=== PATIENT | female | born 1985 | race Caucasian/White ===

== ENCOUNTER 2017-04-21 14:18 | Emergency (ER) | payer OTHER ==
[2017-04-21 14:25] VITALS: BMI 30.9
[2017-04-21] MEDS ORDERED: SODIUM CHLORIDE 1,000 ML IV STA (15:54)
[2017-04-21] MEDS ORDERED: morphine CARPU-JECT 4 MG/1 ML DISP.SYRIN IVPUSH ONE (15:54)
[2017-04-21] MEDS ORDERED: ONDANSETRON 4 MG/2 ML VIAL IVPB ONE (15:54)
[2017-04-21] MEDS ORDERED: morphine CARPU-JECT 10 MG/1 ML DISP.SYRIN ONE (16:10)
[2017-04-21] MEDS ORDERED: ONDANSETRON 4 MG/2 ML VIAL ONE (16:11)
[2017-04-21 16:41] LABS: BASOPHIL 0.5 % (0-2.0); EOSINOPHIL 0.9 % (0-4.5); MCH 25.6 pg (25.7-33.7); MCHC 32.3 g/dl (32.0-36.0); MEAN CELL VOLUME 79.4 fl (80-96); MEAN PLT VOLUME 9.8 fl (7.5-11.1); NEUTROPHILS 55.3 % (42.8-82.8); PLATELET COUNT 278 K/MM3 (134-434); RDW 16.4 % (11.6-15.6); WHITE BLOOD COUNT 7.1 K/mm3 (4.0-10.0)
[2017-04-21 16:56] LABS: PH,URINE 5.5 (5.0-8.0); URINE APPEARANCE CLEAR; URINE BILIRUBIN 2+ (NEGATIVE); URINE BLOOD 3+ (NEGATIVE); URINE COLOR DK. ORANGE; URINE GLUCOSE (UA) TRACE (NEGATIVE); URINE KETONE TRACE (NEGATIVE); URINE NITRITE NEGATIVE (NEGATIVE)
[2017-04-21 17:01] LABS: URINE PROTEIN 1+ (NEGATIVE)
[2017-04-21 17:03] VITALS: BP 116/78; PULSE 78; TEMP 98.5
--- NOTE | 2017-04-21 17:03 | PDOC ---
History of Present Illness - History of Present Illness Initial Comments: 04/21/17 17:21 The patient is a 31 year old female who is approximately 1 month s/p gastric sleeve surgery in [place] who presents to the ED complaining of several days of diffuse lower abdominal pain. No nausea, vomiting, or constipation. She also reports some vaginal bleeding consistent with her normal menstrual period. No fever or chills. No chest pain or palpitations. <Jhoana Mckeon - Last Filed: 04/21/17 18:00> <Jacinta Chandler - Last Filed: 04/21/17 21:01> - General Chief Complaint: Vaginal Bleeding Stated Complaint: VAGINAL BLEEDING/pelvic pain Time Seen by Provider: 04/21/17 17:03 Past History <Johana Mckeon - Last Filed: 04/21/17 18:00> - Past Medical History Other medical history: fibroids - Surgical History Abdominal Surgery: Yes (gastric sleeve) - Immunization History Immunization Up to Date: Yes - Suicide/Smoking/Psychosocial Hx Smoking Status: No Smoking History: Never smoked Have you smoked in the past 12 months: No Number of Cigarettes Smoked Daily: 0 Information on smoking cessation initiated: No Hx Alcohol Use: No Drug/Substance Use Hx: No Substance Use Type: None <Jacinta Chandler - Last Filed: 04/21/17 21:01> - Past Medical History Allergies/Adverse Reactions: Allergies Allergy/AdvReac Type Severity Reaction Status Date / Time No Known Allergies Allergy Verified 04/21/17 14:21 Home Medications: Ambulatory Orders No Home Medications 0 dose .ROUTE UTDICT 12/15/12 Review of Systems - Review of Systems Able to Perform ROS?: Yes Comments:: 04/21/17 18:05 GENERAL/CONSTITUTIONAL: No: fever, chills, weakness, loss of appetite. HEAD, EYES, EARS, NOSE AND THROAT: No: change in vision, ear pain, discharge, sore throat, throat swelling. CARDIOVASCULAR: No: chest pain, lightheadedness, palpitations, syncope RESPIRATORY: No: cough, shortness of breath, wheezing, hemoptysis, stridor. GASTROINTESTINAL: Present: diffuse lower abdominal pain. No: nausea, vomiting, abdominal cramping, diarrhea, rectal bleeding, constipation. GENITOURINARY: Present: vaginal bleeding (normal) No: dysuria, hematuria, frequency, urgency, flank pain. MUSCULOSKELETAL: No: back pain, neck pain, joint pain, muscle swelling or pain SKIN AND BREASTS: No: lesions, pallor, rash or easy bruising. NEUROLOGIC: No: headache, vertigo, paresthesias, weakness ENDOCRINE: No: unexplained weight gain or loss HEMATOLOGIC/LYMPHATIC: No: anemia, easy bleeding, swelling nodes <Johana Mckeon - Last Filed: 04/21/17 18:00> *Physical Exam - Vital Signs Last Vital Signs Temp Pulse Resp BP Pulse Ox 98.5 F 78 16 116/78 99 04/21/17 15:30 04/21/17 15:30 04/21/17 15:30 04/21/17 15:30 04/21/17 15:30 - Physical Exam Comments: 04/21/17 18:08 GENERAL: The patient is in no acute distress. HEAD: Normal with no signs of trauma. EYES: PERRLA, EOMI, sclera anicteric, conjunctiva clear. ENT: Ears normal, nares patent, oropharynx clear without exudates. Moist mucous membranes. NECK: Normal range of motion, supple without lymphadenopathy, JVD, or masses. LUNGS: Breath sounds equal, clear to auscultation bilaterally. No wheezes, and no crackles. HEART:Regular rate and rhythm, normal S1 and S2 without murmur, rub or gallop. ABDOMEN: +Diffuse lower abdominal tenderness to palpation, worse on the right side. Soft, normoactive bowel sounds. No guarding, no rebound. EXTREMITIES: Normal range of motion, no edema. No clubbing or cyanosis. No erythema, or tenderness. NEUROLOGICAL: Cranial nerves II through XII grossly intact. Normal speech. No focal neurological deficits. MUSCULOSKELETAL: Back non-tender to palpation, no CVA tenderness SKIN: Warm, Dry, normal turgor, no rashes or lesions noted. <Johana Mckeon - Last Filed: 04/21/17 18:00> - Vital Signs Last Vital Signs Temp Pulse Resp BP Pulse Ox 98.5 F 78 16 116/78 99 04/21/17 15:30 04/21/17 15:30 04/21/17 15:30 04/21/17 15:30 04/21/17 15:30 <Jacinta Chandler - Last Filed: 04/21/17 21:01> ED Treatment Course - LABORATORY CBC & Chemistry Diagram: 04/21/17 16:30 04/21/17 16:30 - ADDITIONAL ORDERS Additional order review: Laboratory Results 04/21/17 16:30 Serum , Qual Negative Urine Color Dk. orange Urine Appearance Clear Urine pH 5.5 Urine Protein 1+ H Urine Glucose (UA) Trace H Urine Ketones Trace H Urine Blood 3+ H Urine Nitrite Negative Urine Bilirubin 2+ H Urine Urobilinogen 1.0 04/21/17 16:30 RBC 4.85 MCV 79.4 L MCHC 32.3 RDW 16.4 H MPV 9.8 D Neutrophils % 55.3 D Lymphocytes % 34.2 D Monocytes % 9.1 Eosinophils % 0.9 D Basophils % 0.5 - Medications Given in the ED: ED Medications Discontinued Medications Generic Name Dose Route Start Last Admin Trade Name Freq PRN Reason Stop Dose Admin Sodium Chloride 1,000 mls @ 1,000 mls/hr 04/21/17 15:54 04/21/17 16:39 Normal Saline - IV 04/21/17 16:53 1,000 mls/hr ASDIR STA Administration Morphine Sulfate 4 mg 04/21/17 15:54 04/21/17 16:39 Morphine Injection - IVPUSH 04/21/17 15:55 4 mg ONCE ONE Administration Ondansetron HCl 4 mg 04/21/17 15:54 04/21/17 16:15 Zofran Injection IVPB 04/21/17 15:55 4 mg ONCE ONE Administration <Johana Mckeon - Last Filed: 04/21/17 18:00> - LABORATORY CBC & Chemistry Diagram: 04/21/17 16:30 04/21/17 16:30 - ADDITIONAL ORDERS Additional order review: Laboratory Results 04/21/17 16:30 Serum , Qual Negative Urine Color Dk. orange Urine Appearance Clear Urine pH 5.5 Urine Protein 1+ H Urine Glucose (UA) Trace H Urine Ketones Trace H Urine Blood 3+ H Urine Nitrite Negative Urine Bilirubin 2+ H Urine Urobilinogen 1.0 04/21/17 16:30 RBC 4.85 MCV 79.4 L MCHC 32.3 RDW 16.4 H MPV 9.8 D Neutrophils % 55.3 D Lymphocytes % 34.2 D Monocytes % 9.1 Eosinophils % 0.9 D Basophils % 0.5 - Medications Given in the ED: ED Medications Discontinued Medications Generic Name Dose Route Start Last Admin Trade Name Azra PRN Reason Stop Dose Admin Sodium Chloride 1,000 mls @ 1,000 mls/hr 04/21/17 15:54 04/21/17 16:39 Normal Saline - IV 04/21/17 16:53 1,000 mls/hr ASDIR STA Administration Morphine Sulfate 4 mg 04/21/17 15:54 04/21/17 16:39 Morphine Injection - IVPUSH 04/21/17 15:55 4 mg ONCE ONE Administration Ondansetron HCl 4 mg 04/21/17 15:54 04/21/17 16:15 Zofran Injection IVPB 04/21/17 15:55 4 mg ONCE ONE Administration <Jacinta Chandler - Last Filed: 04/21/17 21:01> Medical Decision Making - Medical Decision Making 04/21/17 18:10 31-year-old female presents with persistent nausea and vomiting since this morning. History of present illness significant for a gastric sleeve that was done in [place] one month ago. On exam, left and right quadrants are tender to deep palpation, but there is no guarding. Negative Plan is not clear. The patient is taking any anticoagulation following her surgery and there is concern for portal vein thrombosis 04/21/17 21:00 Patient does not have any abdominal pain now. Her pain is all suprapubic. CAT scan does show a 3.7 cm left ovarian cyst, large fibroids. There is no evidence on CAT scan of any acute intra-abdominal process <Jacinta Chandler - Last Filed: 04/21/17 21:01> *DC/Admit/Observation/Transfer - Attestations Scribe Attestion: 04/21/17 18:09 Documentation prepared by Johana Mckeon, acting as medical education coordinator for Jacinta Chandler MD. <Johana Mckeon - Last Filed: 04/21/17 18:00> <Jacinta Chandler - Last Filed: 04/21/17 21:01> Diagnosis at time of Disposition: Vaginal bleeding Fibroid uterus Qualifiers: Uterine leiomyoma location: unspecified location Qualified Code(s): D25.9 - Leiomyoma of uterus, unspecified Ovarian cyst Qualifiers: Laterality: left Qualified Code(s): N83.202 - Unspecified ovarian cyst, left side - Discharge Dispostion Disposition: HOME Condition at time of disposition: Stable - Patient Instructions Printed Discharge Instructions: DI for Ovarian Cyst Additional Instructions: please return if you have any worsening symptoms follow up with your clean rice broker
[2017-04-21 18:17] LABS: ALBUMIN 3.6 g/dl (3.4-5.0); ALK PHOS 80 U/L (45-117); ANION GAP 9 (8-16); BILIRUBIN,TOTAL 0.6 mg/dL (0.2-1.0); CALCIUM 8.8 mg/dL (8.5-10.1); CO2 24 mmol/L (21-32); CREATININE 0.7 mg/dL (0.55-1.02); GLUCOSE,RANDOM 79 mg/dL (74-106); SGOT/AST 24 U/L (15-37); SGPT/ALT 44 U/L (12-78); TOT PROT 7.5 g/dl (6.4-8.2)
[2017-04-21 18:51] LABS: URINE BACTERIA RARE /hpf (NONE SEEN); URINE MUCUS MANY; URINE RBC 2691 /hpf (0-3); URINE WBC 4 /hpf (3-5)
[2017-04-21] MEDS ORDERED: KETOROLAC TROMETHAMINE 60 MG/2 ML VIAL IM ONE (21:01)
[2017-04-21] MEDS ORDERED: KETOROLAC TROMETHAMINE 60 MG/2 ML VIAL ONE (21:02)
[2017-04-21 22:03] LABS: URINE LEUK ESTERASE Negative (NEGATIVE)
== END 2017-04-21 20:50 | disposition home or self-care (01) ==
LOC: JER 14:18
PROC: 3E0333Z Introduction of Anti-inflammatory into Peripheral Vein, Percutaneous Approach (ICD-10-PCS; principal; 2017-04-21)
PROC: 3E033NZ Introduction of Analgesics, Hypnotics, Sedatives into Peripheral Vein, Percutaneous Approach (ICD-10-PCS; 2017-04-21)
PROC: 3E033GC Introduction of Other Therapeutic Substance into Peripheral Vein, Percutaneous Approach (ICD-10-PCS; 2017-04-21)
PROC: 3E0337Z Introduction of Electrolytic and Water Balance Substance into Peripheral Vein, Percutaneous Approach (ICD-10-PCS; 2017-04-21)
DX: N93.9 Abnormal uterine and vaginal bleeding, unspecified (principal); D25.9 Leiomyoma of uterus, unspecified; N83.202 Unspecified ovarian cyst, left side; Z98.84 Bariatric surgery status
CPT/HCPCS: 36415; 74177-TC; 80053; 81003; 81015; 84703; 85025; 87086; 99281-25

== ENCOUNTER 2017-10-29 21:54 | Emergency (ER) | payer OTHER ==
[2017-10-29 22:04] VITALS: BP 130/81; PULSE 92; TEMP 98.1; BMI 26.6
--- NOTE | 2017-10-29 22:08 | PDOC ---
History of Present Illness - General Chief Complaint: Pain, Acute Stated Complaint: ABD PAIN Time Seen by Provider: 10/29/17 22:06 History Source: Patient - History of Present Illness Initial Comments: 10/30/17 00:28 32-year-old female with history of left ectopic status post surgery 6 days ago complaining of bilateral pelvic pain for the last 3 days. Denies fevers /chills, nausea vomiting diarrhea, abdominal pain, urinary symptoms. Surgical sites intact and dry. Patient reports that she had a positive bowel movement that was soft in nature. Patient reported to the ER for pain uncontrolled with ibuprofen. LMP July 2017 Past History - Past Medical History Allergies/Adverse Reactions: Allergies Allergy/AdvReac Type Severity Reaction Status Date / Time No Known Allergies Allergy Verified 10/29/17 22:03 Home Medications: Ambulatory Orders Ibuprofen 800 mg PO ONCE 10/29/17 Acetaminophen W/ Codeine #3 [Tylenol # 3 -] 1 tab PO Q6H PRN #10 tablet MDD 4 Asthma: Yes COPD: No DVT: No Dementia: No - Surgical History Abdominal Surgery: Yes (gastric sleeve) - Reproductive History (#): 2 Para: 0 Cervical CA: No Dysfunctional Uterine Bleeding: No Ectopic : No Endometrial CA: No Polycystic Ovaries: No Therapeutic (s) & number: No Tubal Ligation: No Spontaneous : 0 - Immunization History Immunization Up to Date: Yes - Suicide/Smoking/Psychosocial Hx Smoking Status: No Smoking History: Never smoked Have you smoked in the past 12 months: No Number of Cigarettes Smoked Daily: 0 Hx Alcohol Use: No Drug/Substance Use Hx: No Substance Use Type: None Review of Systems - Review of Systems Able to Perform ROS?: Yes Is the patient limited Turkmen proficient: No ABD/GI: No: Symptoms Reported, See HPI, Abdominal Distended, Abd. Pain w/ defecation, Blood Streaked Bowels, Constipated, Diarrhea, Difficulty Swallowing , Nausea, Poor Appetite, Poor Fluid Intake, Rectal Bleeding, Vomiting, Indigestion, Abdominal cramping, Tarry Stools, Other : Yes: Other (pelvic pain) *Physical Exam - Vital Signs Last Vital Signs Temp Pulse Resp BP Pulse Ox 98.1 F 92 H 22 130/81 99 10/29/17 22:01 10/29/17 22:01 10/29/17 22:01 10/29/17 22:01 10/29/17 22:01 - Physical Exam General Appearance: Yes: Appropriately Dressed Cardiovascular: positive: Regular Rhythm, Regular Rate Gastrointestinal/Abdominal: positive: Normal Bowel Sounds, Tender (lower abdominal tenderness b/l), Soft Musculoskeletal: positive: Normal Inspection Extremity: positive: Normal Capillary Refill, Normal Inspection, Normal Range of Motion Integumentary: positive: Normal Color, Dry, Warm Neurologic: positive: Fully Oriented, Alert, Normal Mood/Affect ED Treatment Course - LABORATORY CBC & Chemistry Diagram: 10/29/17 22:36 10/29/17 22:36 Progress Note - Progress Note Progress Note: Pelvic pain/ abdominal pain P: CBC CMP ua CTAP: fibroid uterus US: wnl Pain control *DC/Admit/Observation/Transfer Diagnosis at time of Disposition: Pelvic pain Fibroid uterus Qualifiers: Uterine leiomyoma location: unspecified location Qualified Code(s): D25.9 - Leiomyoma of uterus, unspecified - Discharge Dispostion Disposition: HOME Condition at time of disposition: Improved - Prescriptions Prescriptions: Acetaminophen W/ Codeine #3 [Tylenol # 3 -] 1 tab PO Q6H PRN #10 tablet MDD 4 PRN Reason: Moderate Pain - Referrals Referrals: Marisa Canales MD [Primary Care Provider] - - Patient Instructions Printed Discharge Instructions: DI for Pelvic Pain Additional Instructions: follow up with your email marketer as soon as possible take tylenol # 3 for severe pain take ibuprofen every 6 hours. - Post Discharge Activity Forms/Work/School Notes: Back to Work
[2017-10-29] MEDS ORDERED: morphine SULFATE 4 MG/ML VIAL IVPUSH ONE (22:26)
[2017-10-29] MEDS ORDERED: MORPHINE SULFATE 10 MG/1 ML *VIAL ONE (22:34)
[2017-10-29 22:52] LABS: BASO % 0.3 % (0-2.0); EOS % 1.5 % (0-4.5); HEMATOCRIT 32.1 % (32.4-45.2); HEMOGLOBIN 10.5 GM/dL (10.7-15.3); LYMPH % 27.1 % (8-40); MCH 23.8 pg (25.7-33.7); MCHC 32.8 g/dl (32.0-36.0); MEAN CELL VOLUME 72.7 fl (80-96); MONO % 5.6 % (3.8-10.2); NEUT % 65.5 % (42.8-82.8); PLATELET COUNT 373 K/MM3 (134-434); RBC 4.41 M/mm3 (3.60-5.2); RDW 21.3 % (11.6-15.6)
[2017-10-29 23:17] LABS: ALBUMIN 3.3 g/dl (3.4-5.0); ANION GAP 7 (8-16); BILIRUBIN,TOTAL 0.3 mg/dL (0.2-1.0); BLOOD UREA NITROGEN 7 mg/dL (7-18); CALCIUM 8.9 mg/dL (8.5-10.1); CHLORIDE 107 mmol/L (98-107); CO2 28 mmol/L (21-32); CREATININE 0.6 mg/dL (0.55-1.02); GLUCOSE,RANDOM 81 mg/dL (74-106); POTASSIUM 4.3 mmol/L (3.5-5.1); SGOT/AST 15 U/L (15-37); SGPT/ALT 20 U/L (12-78); SODIUM 142 mmol/L (136-145); TOT PROT 7.4 g/dl (6.4-8.2)
[2017-10-29 23:18] LABS: ALK PHOS 80 U/L (45-117)
[2017-10-29] MEDS ORDERED: ACETAMINOPHEN 1000 MG/100 ML VIAL (NON FORMULARY) IVPB ONE (23:26)
[2017-10-29] MEDS ORDERED: ACETAMINOPHEN INJECTION 100 ML IVPB ONE (23:29)
[2017-10-30] MEDS ORDERED: morphine CARPU-JECT 4 MG/1 ML DISP.SYRIN IVPUSH ONE (00:47)
[2017-10-30] MEDS ORDERED: MORPHINE SULFATE 10 MG/1 ML *VIAL ONE (00:54)
[2017-10-30] MEDS ORDERED: KETOROLAC TROMETHAMINE 30 MG/1 ML VIAL IVPUSH ONE (01:08)
[2017-10-30] MEDS ORDERED: KETOROLAC TROMETHAMINE 30 MG/1 ML VIAL ONE (01:40)
== END 2017-10-30 01:53 | disposition home or self-care (01) ==
LOC: JER 21:54
DX: D25.9 Leiomyoma of uterus, unspecified (principal)
CPT/HCPCS: 36415; 74177-TC; 76856-TC; 80053; 84703; 85025; 86850; 86900; 86901; 99283-25; J0131

== ENCOUNTER 2018-08-29 21:12 | Observation (INO) | payer OTHER ==
[2018-08-29 21:20] VITALS: BMI 24.9
[2018-08-29] MEDS ORDERED: ACETAMINOPHEN 1000 MG/100 ML VIAL (NON FORMULARY) IVPB ONE (22:21)
[2018-08-29] MEDS ORDERED: SODIUM CHLORIDE 1,000 ML IV STA (22:21)
--- NOTE | 2018-08-29 22:23 | PDOC ---
Attending Attestation - HPI HPI: CC: Abdominal cramping The patient is a 32 year old female 15 weeks (A1), with a significant PMH of ectopic , fibroids, and asthma, who presents to the emergency department today complaining of abdominal cramping for 2 days. Patient notes that the pain began last night, and is described as crampy and pressure-like in nature. She denies vaginal bleeding, but endorses brown-watery discharge. Patient notes associated chills, and complains of nausea which has been present secondary to her . She notes her last bowel movement was yesterday, which was normal without blood. Patient reports that her first was ectopic in September 2017, which required surgical care at [facility]. She denies any complications during that . Intrauterine was confirmed, and her last ultrasound was 18 days ago. The patient denies chest pain, shortness of breath, headache and dizziness. Denies fever, vomit, diarrhea and constipation. Denies dysuria, frequency, urgency and hematuria. Allergies: NKA Past surgical history: Gastric sleeve, laparoscopic ectopic surgery Social history: No reported OBGYN: Dr. Marisa Bruno 08/30/18 01:06 - Physicial Exam PE: Vitals: Triage Vital signs reviewed General Appearance: no acute distress, well nourished well developed, Head: Atraumatic, normocephalic Cardiac: Regular rate and rhythm, no murmurs, no rubs, no gallops, Lungs: Clear to auscultation bilateral, good air movement bilaterally, Abdomen: +Diffuse lower abdominal tenderness to palpation. Soft, nondistended, normal bowel sounds, Extremities: Full range of motion to all extremities, no cyanosis, clubbing, or edema Skin: Warm and dry, no rashes or lesions, no petechiae Neuro: AOX3; Cranial Nerves 2-12 grossly c intact, Strength intact to all extremities, Sensation intact to all extremities, Psych: normal mood, normal affect 08/30/18 01:06 - Medical Decision Making 32 year old female 15 weeks with history of ectopic , fibroids and asthma presents to the ED with abdominal cramping for 2 days. Plan: Obtain labs, obstetric ultrasound, and medications to help alleviate pain. EXAM: Ultrasound obstetric, twin IMPRESSION: Cervical funneling, with the cervix only mm in length. Live twin with estimated age of 14 weeks 4 days/5 days. 7.2 cm right fundal fibroid. Nonvisualization of the right ovary. Reported by: Cristofer Thapa MD 08/30/2018 00:44 1:02 am- Spoke with Dr. Gray's call service, awaiting call back 1:07 am- Spoke with Dr. Gray concerning patient's care, is in agreement with plan Documentation prepared by CONY Dunne, acting as medical operations supervisor for James Tineo MD. 08/30/18 01:07 <Gabby Flores - Last Filed: 08/30/18 01:06> - Resident Resident Name: Katia Reyes - ED Attending Attestation I have performed the following: I have examined & evaluated the patient, The case was reviewed & discussed with the resident, I agree w/resident's findings & plan, Exceptions are as noted - Medical Decision Making 08/30/18 01:03 15 weeks by dates ultrasound with open os Upon return from ultrasound patient with progressively worsening abdominal cramping now actively miscarrying Passage of one fetus with small amount of blood will perform speculum exam to see if there if visually can see second. Dr. Reyes SALES PROMOTER paged 08/30/18 01:29 Reevaluation 1:30 AM second fetus delivered placenta delivered. No significant bleeding. POC sent to pathology We'll observe overnight on 3 W. to monitor for bleeding Dr. Reyes will consult on patient to ensure no Pitocin needed I expressed my condolences to the patient and family. <James Tineo - Last Filed: 08/30/18 02:13>
[2018-08-29] MEDS ORDERED: ACETAMINOPHEN INJECTION 100 ML IVPB ONE (22:24)
[2018-08-29] MEDS ORDERED: METOCLOPRAMIDE HCL INJECTION 10 MG/2 ML VIAL IVPUSH ONE (22:26)
--- NOTE | 2018-08-29 22:37 | PDOC ---
History of Present Illness - General Chief Complaint: Pain Stated Complaint: ABDOMINAL PAIN, 3 MONTHS Time Seen by Provider: 08/29/18 21:23 - History of Present Illness Initial Comments: 32yo F A1 currently 15 weeks with twins presenting with abdominal cramping. Patient states the pain started last night and is described as 'crampy ' and 'pressure.' She denies vaginal bleeding but has had some brownish watery discharge. Patient first was an ectopic that was surgically treated in September 2017 at [facility]. Her seal delivery vehicle officer provider is Marisa Bruno. No complications with this . IUP has been confirmed and her last ultrasound was on 08/12/18. Denies fever, but endorses chills. Last bowel movement was yesterday and was a normal formed brown stool without blood. Patient reports nausea that she has had throughout the . No dysuria, hematuria, or urgency. Denies chest pain or shortness of breath. Past History - Past Medical History Allergies/Adverse Reactions: Allergies Allergy/AdvReac Type Severity Reaction Status Date / Time No Known Allergies Allergy Verified 08/29/18 21:20 Home Medications: Ambulatory Orders Ibuprofen 800 mg PO ONCE 10/29/17 Acetaminophen W/ Codeine #3 [Tylenol # 3 -] 1 tab PO Q6H PRN #10 tablet MDD 4 Ferrous Sulfate 325 mg PO BID #90 tablet 08/30/18 Ibuprofen [Motrin -] 600 mg PO TID #21 tablet 08/30/18 Asthma: Yes COPD: No DVT: No Dementia: No - Surgical History Abdominal Surgery: Yes (gastric sleeve) - Reproductive History (#): 2 Para: 0 Cervical CA: No Dysfunctional Uterine Bleeding: No Ectopic : No Endometrial CA: No Polycystic Ovaries: No Therapeutic (s) & number: No Tubal Ligation: No Spontaneous : 0 - Immunization History Immunization Up to Date: Yes - Suicide/Smoking/Psychosocial Hx Smoking Status: No Smoking History: Never smoked Have you smoked in the past 12 months: No Number of Cigarettes Smoked Daily: 0 Information on smoking cessation initiated: No Hx Alcohol Use: No Drug/Substance Use Hx: No Substance Use Type: None Review of Systems - Review of Systems Comments:: Constitutional: no fever, +chills HEENT: no throat pain, no dysphagia Cardiovascular: no chest pain, no palpitations Respiratory: no cough, no shortness of breath Gastrointestinal: +abdominal pain, +nausea Genitourinary: no dysuria, +discharge Musculoskeletal: no myalgia, no arthralgia Skin: no rash, no itching Neurologic: no headache, no dizziness *Physical Exam - Vital Signs Last Vital Signs Temp Pulse Resp BP Pulse Ox 98.0 F 92 H 16 98/59 L 100 08/29/18 21:18 08/29/18 21:18 08/29/18 21:18 08/29/18 21:18 08/29/18 21:18 - Physical Exam Comments: General: Awake, alert, and fully oriented; crying out intermittently in pain Head: No signs of trauma Eyes: EOMI, sclera anicteric ENT: Moist mucus membranes Neck: Normal ROM, supple Lungs: Lungs clear, Normal breath sounds Cardio: Regular rhythm, S1 and S2 present Abdomen: Gravid abdomen. Tenderness to palpation of suprapubic region. No guarding, no rebound, no masses Extremities: Normal range of motion, Distal pulses present SKIN: Warm, Dry, normal turgor Neurologic: Cranial nerves II through XII grossly intact. Normal speech Pelvic: External genitalia without erythema, exudate or discharge. Vaginal vault is with brown discharge and some blood. Cervix is of normal color without lesion. Uterus is noted to be of appropriate size for gestational age. Moderate Sedation - Procedure Monitoring Vital Signs: Procedure Monitoring Vital Signs Temperature 98.0 F 08/29/18 21:18 Pulse Rate 92 H 08/29/18 21:18 Respiratory Rate 16 08/29/18 21:18 Blood Pressure 98/59 L 08/29/18 21:18 O2 Sat by Pulse Oximetry (%) 100 08/29/18 21:18 ED Treatment Course - LABORATORY CBC & Chemistry Diagram: 08/30/18 15:30 08/29/18 22:38 Medical Decision Making - Medical Decision Making 32yo F A1 currently 15 weeks with twins presenting with abdominal cramping. DDX including but not limited to spontaneous , ectopic , UTI, nephrolithiasis, appendicitis Labs, ultrasound Fluids, Ofirmev, Reglan 08/29/18 22:43 UA with evidence of UTI with 3+LE and 262 WBC's, keflex ordered Awaiting official ultrasound report Patient still complaining of significant pain. Another 4mg morphine ordered 08/30/18 00:37 TVUS: IMPRESSION: Cervical funneling, with the cervix only 6 mm in length Live twin with estimated age of 14 weeks 4 days/5 days. 7.2 cm right fundal fibroid. Nonvisualization of the right ovary Patient miscarried while in the ED. Both fetuses were expelled with placental tissue. Patient in distress. Ativan given. Specimen was collected for pathology. Dr. Tineo spoke with Dr. Gray who accepted patient for observation. 08/30/18 01:53 *DC/Admit/Observation/Transfer Diagnosis at time of Disposition: Spontaneous - Discharge Dispostion Condition at time of disposition: Guarded - Prescriptions - Referrals - Patient Instructions - Post Discharge Activity
[2018-08-29] MEDS ORDERED: morphine CARPU-JECT 4 MG/1 ML DISP.SYRIN IVPUSH ONE (22:48)
[2018-08-29] MEDS ORDERED: morphine SULFATE 4 MG/ML VIAL ONE (22:49)
[2018-08-29 22:50] LABS: BASO % 0.3 % (0-2.0); EOS % 0.2 % (0-4.5); HEMATOCRIT 31.3 % (32.4-45.2); HEMOGLOBIN 10.3 GM/dL (10.7-15.3); LYMPH % 15.7 % (8-40); MCH 24.4 pg (25.7-33.7); MEAN PLT VOLUME 8.9 fl (7.5-11.1); NEUT % 77.8 % (42.8-82.8); PLATELET COUNT 282 K/MM3 (134-434); RBC 4.23 M/mm3 (3.60-5.2); RDW 24.1 % (11.6-15.6); URINE APPEARANCE CLOUDY; URINE BILIRUBIN NEGATIVE (<2.0 mg/dL); URINE COLOR DKYELLOW; URINE GLUCOSE (UA) NEGATIVE (NEGATIVE); URINE KETONE NEGATIVE (NEGATIVE); URINE LEUK ESTERASE 3+ (NEGATIVE); URINE NITRITE NEGATIVE (NEGATIVE); URINE PROTEIN 1+ (NEGATIVE); URINE UROBILINOGEN NEGATIVE mg/dL (0.2-1.0); WHITE BLOOD COUNT 15.3 K/mm3 (4.0-10.0)
[2018-08-29 23:01] LABS: EPI CELLS FEW /HPF (FEW); URINE BACTERIA RARE /hpf (NONE SEEN); URINE MUCUS MODERATE; YEAST RARE
[2018-08-29 23:29] LABS: ANISOCYTOSIS 3+; MACROCYTOSIS 1+
[2018-08-29 23:30] LABS: PLATELET ESTIMATE ADEQUATE
[2018-08-29] MEDS ORDERED: CEPHALEXIN MONOHYDRATE 500 MG CAPSULE (UD) PO ONE (23:58)
[2018-08-30] MEDS ORDERED: morphine CARPU-JECT 4 MG/1 ML DISP.SYRIN IVPUSH ONE (00:29)
[2018-08-30] MEDS ORDERED: morphine SULFATE 4 MG/ML VIAL ONE (00:36)
[2018-08-30] MEDS ORDERED: LORazepam 2 MG/ML SDV VIAL ONE (00:50)
[2018-08-30 01:34] LABS: ALK PHOS 93 U/L (45-117); ANION GAP 9 MMOL/L (8-16); BILIRUBIN,TOTAL 0.2 mg/dL (0.2-1); BLOOD UREA NITROGEN 9 mg/dL (7-18); CALCIUM 8.9 mg/dL (8.5-10.1); CHLORIDE 105 mmol/L (98-107); CO2 24 mmol/L (21-32); CREATININE 0.6 mg/dL (0.55-1.3); GLUCOSE,RANDOM 67 mg/dL (74-106); POTASSIUM 4.3 mmol/L (3.5-5.1); SGOT/AST 20 U/L (15-37); SGPT/ALT 31 U/L (13-61); SODIUM 138 mmol/L (136-145); TOT PROT 6.9 g/dl (6.4-8.2)
[2018-08-30] MEDS ORDERED: PROMETHAZINE HCL 25 MG/1 ML VIAL ONE (04:00)
[2018-08-30] MEDS ORDERED: BUTORPHANOL TARTRATE 1 MG/ML VIAL ONE ×2 (04:00)
[2018-08-30] MEDS ORDERED: METHYLERGONOVINE MALEATE 0.2 MG/1 ML AMP IM PRN ×2 (04:13→08:07)
[2018-08-30] MEDS ORDERED: BUTORPHANOL TARTRATE 1 MG/ML VIAL IVPB PRN (04:31)
[2018-08-30] MEDS ORDERED: PROMETHAZINE HCL 25 MG/1 ML VIAL IVPB PRN (04:32)
[2018-08-30] MEDS ORDERED: OXYTOCIN 20 UNITS in 0.9% NS 20 UNIT/1,000 ML INFUS.BAG IV SCH (04:45)
--- NOTE | 2018-08-30 07:32 | HP ---
Past Medical History - Primary Care Physician PCP:: Onel Gray - Admission Chief Complaint: vaginal bleeding, retained placenta History of Present Illness: 32 yo f with 16 weeks twin gestation .had spontaneous of both twinsin ER , now has heavy vaginal bleeding and low abdominal pain, passing clots , admitted for removal of placenta and D&C , risks of procedure has explained to patient History Source: Patient Limitations to Obtaining History: Language Barrier - Past Medical History ...: 2 ...Para: 0 ... Weeks Gestation by Dates: 16 Additional OB History: hx of previous ectopic . fibroid uterus Heme/Onc: Yes: Anemia - Past Surgical History Past Surgical History: Yes: Bariatric Surgery Hx Myomectomy: No Hx Transabdominal Cerclage: No - Smoking History Smoking history: Never smoked Have you smoked in the past 12 months: No Aproximately how many cigarettes per day: 0 - Alcohol/Substance Use Hx Alcohol Use: No - Social History Usual Living Arrangement: Yes: With Spouse History of Recent Travel: No Home Medications - Allergies Allergies/Adverse Reactions: Allergies Allergy/AdvReac Type Severity Reaction Status Date / Time No Known Allergies Allergy Verified 08/29/18 21:20 - Home Medications Home Medications: Ambulatory Orders Ibuprofen 800 mg PO ONCE 10/29/17 Acetaminophen W/ Codeine #3 [Tylenol # 3 -] 1 tab PO Q6H PRN #10 tablet MDD 4 Review of Systems - Review of Systems Constitutional: reports: No Symptoms Eyes: reports: No Symptoms HENT: reports: No Symptoms Neck: reports: No Symptoms Cardiovascular: reports: No Symptoms Respiratory: reports: No Symptoms Gastrointestinal: reports: Abdominal Pain Genitourinary: reports: Vaginal Bleeding Musculoskeletal: reports: No Symptoms Integumentary: reports: No Symptoms Neurological: reports: No Symptoms Endocrine: reports: No Symptoms Hematology/Lymphatic: reports: No Symptoms Psychiatric: reports: No Symptoms Physical Exam-EMBEDDED SOFTWARE PROGRAMMER Vital Signs: Vital Signs Temperature 98.3 F 08/30/18 06:10 Pulse Rate 95 H 08/30/18 06:10 Respiratory Rate 20 08/30/18 06:10 Blood Pressure 115/70 08/30/18 06:10 O2 Sat by Pulse Oximetry (%) 99 08/30/18 03:16 Constitutional: Yes: Well Nourished, No Distress, Calm Eyes: Yes: WNL, Conjunctiva Clear, EOM Intact HENT: Yes: WNL, Atraumatic, Normocephalic Neck: Yes: WNL, Supple, Trachea Midline Cardiovascular: Yes: WNL, Regular Rate and Rhythm Respiratory: Yes: WNL, Regular, CTA Bilaterally Gastrointestinal: Yes: WNL ...Rectal Exam: Yes: WNL Renal/: Yes: WNL External Genitalia: Yes: Normal Vaginal Exam: Yes: Bleeding Cervix: Yes: Other (open with blood clots) Uterus: Yes: Boggy, Enlarged, Tender Adnexa: Not Palpable: Left, Right Breast(s): Yes: WNL Musculoskeletal: Yes: WNL Extremities: Yes: WNL Edema: No Integumentary: Yes: WNL Neurological: Yes: WNL, Alert, Oriented ...Motor Strength: WNL Psychiatric: Yes: WNL, Alert, Oriented Labs: CBC, BMP 08/29/18 22:38 08/29/18 22:38 Problem List - Problem (1) with 16 completed weeks gestation Code(s): Z3A.16 - 16 WEEKS GESTATION OF (2) Spontaneous Code(s): O03.9 - COMPLETE OR UNSP SPONTANEOUS WITHOUT COMPLICATION (3) Retained placenta Code(s): O73.0 - RETAINED PLACENTA WITHOUT HEMORRHAGE Qualifiers: Retained placenta detail: portions of placenta Qualified Code(s): O73.1 - Retained portions of placenta and membranes, without hemorrhage Assessment/Plan admit EUA, removal of placenta , D&C
[2018-08-30] MEDS ORDERED: BENZOCAINE 20% 57 GM BOTTLE TP PRN (08:07)
[2018-08-30] MEDS ORDERED: BENZOCAINE 28 GM HEMORRHOIDAL OINTMENT TP PRN (08:07)
[2018-08-30] MEDS ORDERED: WITCH HAZEL 50% (TUCKS) 40 PAD/JAR PAD TP PRN (08:07)
[2018-08-30] MEDS ORDERED: BISACODYL 10 MG SUPP.RECT RC PRN (08:07)
[2018-08-30] MEDS ORDERED: D5W-LR W/ 20 UNITS OXYTOCIN 20 UNIT/1,000 ML INFUS.BAG IV SCH (08:15)
[2018-08-30] MEDS ORDERED: PROPOFOL 20 ML ONE (08:16)
[2018-08-30] MEDS ORDERED: ceFAZolin SODIUM 1 GM VIAL IVPB ONE (08:20)
[2018-08-30] MEDS ORDERED: ceFAZolin SODIUM 1 GM VIAL ONE (08:23)
[2018-08-30] MEDS ORDERED: DEXAMETHASONE SOD PHOSPHATE 4 MG/1 ML VIAL ONE (08:25)
[2018-08-30] MEDS ORDERED: SUCCINYLCHOLINE CHLORIDE 200 MG/10 ML VIAL ONE (08:38)
[2018-08-30] MEDS ORDERED: OXYTOCIN 10 UNITS/ML VIAL ONE (08:59)
[2018-08-30] MEDS ORDERED: MIDAZOLAM HCL 2 MG/2 ML SINGLE DOSE VIAL ONE (09:04)
[2018-08-30] MEDS ORDERED: ONDANSETRON 4 MG/2 ML VIAL IVPUSH PRN (09:37)
[2018-08-30] MEDS: FERROUS SO4 325 MG TABLET (FP) PO SCH ×2 (14:00→22:43)
[2018-08-30] MEDS: PRENATAL VITAMINS W/ FOLIC ACID TABLET (FP) PO SCH (14:00)
[2018-08-30 16:25] LABS: BASO % 0.1 % (0-2.0); HEMATOCRIT 30.3 % (32.4-45.2); HEMOGLOBIN 10.1 GM/dL (10.7-15.3); MCH 26.2 pg (25.7-33.7); MCHC 33.4 g/dl (32.0-36.0); MEAN CELL VOLUME 78.4 fl (80-96); MEAN PLT VOLUME 9.8 fl (7.5-11.1); MONO % 1.9 % (3.8-10.2); PLATELET COUNT 237 K/MM3 (134-434); RBC 3.87 M/mm3 (3.60-5.2); RDW 23.5 % (11.6-15.6); WHITE BLOOD COUNT 24.9 K/mm3 (4.0-10.0)
[2018-08-30 20:00] LABS: ANISOCYTOSIS 3+; OVALOCYTE 1+
[2018-08-30 20:04] LABS: MACROCYTOSIS 1+; PLATELET ESTIMATE ADEQUATE
[2018-08-30] MEDS: ACETAMINOPHEN 325 MG TABLET (FP) PO PRN (20:22)
[2018-08-30] MEDS: IBUPROFEN 600 MG TABLET (FP) PO PRN (20:23)
[2018-08-30] MEDS: diphenhydrAMINE HCL 25 MG CAPSULE (FP) PO PRN (22:42)
[2018-08-31] MEDS: IBUPROFEN 600 MG TABLET (FP) PO PRN ×4 (01:38→22:03)
[2018-08-31] MEDS: ACETAMINOPHEN 325 MG TABLET (FP) PO PRN ×4 (01:38→22:02)
[2018-08-31 07:46] LABS: BASO % 0.4 % (0-2.0); EOS % 0.5 % (0-4.5); HEMATOCRIT 22.5 % (32.4-45.2); HEMOGLOBIN 7.6 GM/dL (10.7-15.3); MCH 25.8 pg (25.7-33.7); MCHC 33.6 g/dl (32.0-36.0); MEAN CELL VOLUME 76.8 fl (80-96); MEAN PLT VOLUME 8.8 fl (7.5-11.1); MONO % 5.6 % (3.8-10.2); NEUT % 68.5 % (42.8-82.8); PLATELET COUNT 205 K/MM3 (134-434); RBC 2.92 M/mm3 (3.60-5.2); RDW 23.3 % (11.6-15.6); WHITE BLOOD COUNT 13.3 K/mm3 (4.0-10.0)
[2018-08-31] MEDS: PRENATAL VITAMINS W/ FOLIC ACID TABLET (FP) PO SCH (09:05)
[2018-08-31] MEDS: FERROUS SO4 325 MG TABLET (FP) PO SCH ×2 (09:05→21:23)
--- NOTE | 2018-08-31 09:51 | PN ---
Progress Note (short form) - Note Progress Note: 32 yo status post suction D&C for retained product of conception, seen and evaluated. She c/o feeling dizzy. She's lying in bed and unable to ambulate despite blood transfusion yesterday. PE : Chest : CTA ABD : Soft, NT Pelvis : Bloody discharge, no heavy bleeding A/P : Status post suction D&C Severe anemia Transfuse additional 2 units of PRBC's Repeat CBC in 4 hours after transfusion.
[2018-08-31] MEDS ORDERED: PANTOPRAZOLE 40 MG TABLET (FP) PO ONE (12:09)
--- NOTE | 2018-08-31 12:59 | PN ---
Progress Note (short form) - Note Progress Note: Anesthesia postop note 32 y/o F s/p GA for d&c POD#1, vss, aaox3, no complaints. No anesthesia complications.
--- NOTE | 2018-08-31 13:54 | CONSULT ---
Consultation: REQUESTING PROVIDER: CONSULT REQUEST: We have been asked to medically evaluate this patient for Chest Pain. HISTORY OF PRESENT ILLNESS: The patient is a 32-year-old female the past medical history of uterine fibroids , ectopic , and spontaneous who was admitted to the [facility] after she was found to have a spontaneous . The patient was taken to the OR on 08/30 for D&C of retained products of conception. The patient complained of heavy vaginal bleeding on presentation and received two units PRBC yesterday and is due for another 2 units today. Approximately 9 AM this morning, the patient complained of chest pain and right arm pain. The medicine service was consulted to assess the patient for acute coronary syndrome. The patient is unable to describe her chest pain, but states that his sub sternal and radiating up and down the center of her chest. The patient also complains of diffuse abdominal pain and right arm pain. The patient states that all the pain she complains of is reproducible on palpation. Patient denies fever, chills, diaphoresis, shortness of breath, diarrhea, nausea or vomiting. REVIEW OF SYSTEMS: CONSTITUTIONAL: Absent: fever, chills, diaphoresis, generalized weakness, malaise, loss of appetite, weight change HEENT: Absent: rhinorrhea, nasal congestion, throat pain, throat swelling, difficulty swallowing, mouth swelling, ear pain, eye pain, visual changes CARDIOVASCULAR: Absent: syncope, palpitations, irregular heart rate, lightheadedness, peripheral edema RESPIRATORY: Absent: cough, shortness of breath, dyspnea with exertion, orthopnea, wheezing, stridor, hemoptysis GASTROINTESTINAL: Absent: abdominal distension, nausea, vomiting, diarrhea, constipation, melena, hematochezia GENITOURINARY: Absent: dysuria, frequency, urgency, hesitancy, hematuria, flank pain, genital pain MUSCULOSKELETAL: Absent: arthralgia, joint swelling, back pain, neck pain SKIN: Absent: rash, itching, pallor HEMATOLOGIC/IMMUNOLOGIC: Absent: easy bleeding, easy bruising, lymphadenopathy, frequent infections ENDOCRINE: Absent: unexplained weight gain, unexplained weight loss, heat intolerance, cold intolerance NEUROLOGIC: Absent: headache, focal weakness or paresthesias, dizziness, unsteady gait, seizure, mental status changes, bladder or bowel incontinence PSYCHIATRIC: Absent: anxiety, depression, suicidal or homicidal ideation, hallucinations. PHYSICAL EXAMINATION Vital Signs - 24 hr 08/30/18 08/30/18 08/30/18 14:15 14:48 18:06 Temperature 98.2 F 98.0 F 98.8 F Pulse Rate 87 87 91 H Respiratory 18 18 18 Rate Blood Pressure 110/60 110/60 100/56 L O2 Sat by Pulse Oximetry (%) 08/30/18 08/31/18 08/31/18 22:00 02:00 06:10 Temperature 99.0 F 98.6 F 98.8 F Pulse Rate 98 H 80 Respiratory 18 18 Rate Blood Pressure 114/57 L 101/56 L O2 Sat by Pulse Oximetry (%) 08/31/18 10:47 Temperature Pulse Rate Respiratory Rate Blood Pressure O2 Sat by Pulse 100 Oximetry (%) GENERAL: Awake, alert, and fully oriented, in no acute distress. HEAD: Normal with no signs of trauma. EYES: Pupils equal, round and reactive to light, extraocular movements intact, sclera anicteric, conjunctiva clear. No lid lag. LUNGS: Breath sounds equal, clear to auscultation bilaterally. No wheezes, and no crackles. No accessory muscle use. HEART: Regular rhythm, tachycardic, normal S1 and S2 without murmur, rub or gallop. The patient's chest pain is reproducible on palpation. ABDOMEN: Soft, not distended, normoactive bowel sounds, no guarding, no rebound , no masses. There is diffuse tenderness to palpation all across the stomach as well as in the epigastrium. MUSCULOSKELETAL: Normal range of motion at all joints. No bony deformities or tenderness. No CVA tenderness. Tenderness to palpation in the right arm from the shoulder down to the bicep at the site of the patient's IV. Full ROM. UPPER EXTREMITIES: 2+ pulses, warm, well-perfused. No cyanosis. No clubbing. Cap refill <2 seconds. No peripheral edema. LOWER EXTREMITIES: 2+ pulses, warm, well-perfused. No calf tenderness. No peripheral edema. NEUROLOGICAL: Cranial nerves II-X intact. Normal speech. PSYCHIATRIC: Cooperative. Good eye contact. Appropriate mood and affect. SKIN: Warm, dry, normal turgor, no rashes or lesions noted. Laboratory Results - last 24 hr 08/29/18 08/30/18 08/31/18 22:38 15:30 07:10 WBC 24.9 H 13.3 H RBC 3.87 2.92 L Hgb 10.1 L 7.6 L Hct 30.3 L 22.5 L D MCV 78.4 L 76.8 L MCH 26.2 25.8 MCHC 33.4 33.6 RDW 23.5 H 23.3 H Plt Count 237 205 MPV 9.8 D 8.8 D Absolute Neuts (auto) 22.6 H 9.1 H Total Counted 100 Neutrophils % 91.0 H 68.5 D Neutrophils % (Manual) 92.0 H Band Neutrophils % 1.0 Lymphocytes % 7.0 L D 25.0 D Lymphocytes % (Manual) 5.0 L Monocytes % 1.9 L 5.6 D Monocytes % (Manual) 1 L Eosinophils % 0.0 D 0.5 D Basophils % 0.1 0.4 D Nucleated RBC % 0 0 Differential Comment Man diff performed Platelet Estimate Adequate Platelet Comment Polychromasia 1+ Poikilocytosis 1+ Anisocytosis 3+ Macrocytosis 1+ Ovalocytes 1+ Troponin I Blood Type O POSITIVE Antibody Screen Negative Crossmatch See Detail 08/31/18 12:30 WBC RBC Hgb Hct MCV MCH MCHC RDW Plt Count MPV Absolute Neuts (auto) Total Counted Neutrophils % Neutrophils % (Manual) Band Neutrophils % Lymphocytes % Lymphocytes % (Manual) Monocytes % Monocytes % (Manual) Eosinophils % Basophils % Nucleated RBC % Differential Comment Platelet Estimate Platelet Comment Polychromasia Poikilocytosis Anisocytosis Macrocytosis Ovalocytes Troponin I < 0.02 Blood Type Antibody Screen Crossmatch Active Medications Generic Name Dose Route Start Last Admin Trade Name Freq PRN Reason Stop Dose Admin Acetaminophen 650 mg 08/30/18 08:07 08/31/18 06:18 Tylenol - PO 650 mg Q3H PRN Administration FEVER Benzocaine 1 spray 08/30/18 08:07 Americaine 20% [place] - TP PRN PRN Pain - Topical Benzocaine 1 applic 08/30/18 08:07 Americaine Ointment - TP PRN PRN Pain - Topical Bisacodyl 10 mg 08/30/18 08:07 Dulcolax Suppository - RC PRN PRN CONSTIPATION Butorphanol Tartrate 2 mg 08/30/18 04:31 08/30/18 04:00 Stadol - IVPB 2 mg Q4H PRN Administration PAIN Diphenhydramine HCl 50 mg 08/30/18 21:56 08/30/18 22:42 Benadryl - PO 50 mg HS PRN Administration ITCHING Ferrous Sulfate 325 mg 08/30/18 10:00 08/31/18 09:05 Feosol - PO 325 mg BID MAR Administration Oxytocin/Sodium Chloride 20 unit in 1,000 mls @ 150 mls/hr 08/30/18 04:45 03:55 Normal Saline+20 Units Oxytocin - IV 150 mls/hr ASDIR MAR Administration Ibuprofen 600 mg 08/30/18 08:07 08/31/18 06:17 Motrin - PO 600 mg Q4H PRN Administration PAIN LEVEL 1-5 Methylergonovine Maleate 0.2 mg 08/30/18 04:13 08/30/18 06:10 Methergine Injection - IM 0.2 mg Q4H PRN Administration EXCESSIVE BLEEDING Methylergonovine Maleate 0.2 mg 08/30/18 08:07 Methergine Injection - IM Q4H PRN EXCESSIVE BLEEDING (L&D) Ondansetron HCl 4 mg 08/30/18 09:37 Zofran Injection IVPUSH Q6H PRN NAUSEA AND/OR VOMITING Multivit/Folic Acid/Iron 1 tab 08/30/18 10:00 08/31/18 09:05 Vitamins (Sjr) - PO 1 tab DAILY MAR Administration Promethazine HCl 25 mg 08/30/18 04:32 08/30/18 04:00 Phenergan Injection - IVPB 25 mg Q4H PRN Administration PAIN Senna/Docusate Sodium 2 tablet 08/31/18 22:00 Pericolace - PO HS PRN CONSTIPATION Witch Lavinia/Glycerin 1 pad 08/30/18 08:07 Tucks Pads - TP PRN PRN Pain - Topical ASSESSMENT/PLAN: The patient is a 32-year-old female with a past medical history of uterine fibroids, ectopic who is status post D&C for spontaneous . Patient complained of sub sternal chest pain without radiation reproducible on palpation is 9 AM this morning. #Substernal chest pain -EKG taken during pain episode shows NSR with no T wave changes. -Troponin negative times one -The patient's pain is reproducible on palpation, non-radiating, not associated with shortness of breath. -The patient has no other risk factors for CAD. -For the above reasons, ACS is less likely. Will trend troponin Q6H to objectively rule out ACS. -The patient's chest pain is more likely secondary to symptomatic anemia versus anxiety versus acid reflux. -Prescribed Protonix 40mg PO once Dispo: We will continue to follow the patient. Thank you for this consultative opportunity. Visit type - Emergency Visit Emergency Visit: Yes ED Registration Date: 08/30/18 Care time: The patient presented to the Emergency Department on the above date and was hospitalized for further evaluation of their emergent condition. - New Patient This patient is new to me today: Yes Date on this admission: 08/31/18 - Critical Care Critical Care patient: No
--- NOTE | 2018-08-31 17:57 | PN ---
Teaching Attending Note Name of Resident: Maxx Gay ATTENDING PHYSICIAN STATEMENT I saw and evaluated the patient. I reviewed the resident's note and discussed the case with the resident. I agree with the resident's findings and plan as documented. SUBJECTIVE: Patient is comfortable with no shortness of breath, no chest pain at this time. received total of 4 units of transfusion. OBJECTIVE: Vital Signs Temperature 97.9 F 08/31/18 17:23 Pulse Rate 82 08/31/18 17:23 Respiratory Rate 20 08/31/18 17:23 Blood Pressure 114/59 L 08/31/18 17:23 O2 Sat by Pulse Oximetry (%) 100 08/31/18 10:47 GENERAL: Awake, alert, and fully oriented, in no acute distress. HEAD: Normal with no signs of trauma. EYES: Pupils equal, round and reactive to light, extraocular movements intact, sclera anicteric, conjunctiva clear. No lid lag. LUNGS: Breath sounds equal, clear to auscultation bilaterally. No wheezes, and no crackles. No accessory muscle use. HEART: Regular rhythm, tachycardic, normal S1 and S2 without murmur, rub or gallop. The patient's chest pain is reproducible on palpation. ABDOMEN: Soft, mildly distended , mild tenderness on palpation umblical area . normoactive bowel sounds, no guarding, no rebound, no masses. EXTREMITIES: 2+ pulses, warm, well-perfused. No cyanosis. No clubbing. peripheral edema. NEUROLOGICAL: Cranial nerves II-X intact. Normal speech. PSYCHIATRIC: Cooperative. Good eye contact. Appropriate mood and affect. SKIN: Warm, dry, normal turgor, no rashes or lesions noted. CBCD WBC 13.3 K/mm3 (4.0-10.0) H 08/31/18 07:10 RBC 2.92 M/mm3 (3.60-5.2) L 08/31/18 07:10 Hgb 7.6 GM/dL (10.7-15.3) L 08/31/18 07:10 Hct 22.5 % (32.4-45.2) L D 08/31/18 07:10 MCV 76.8 fl (80-96) L 08/31/18 07:10 MCHC 33.6 g/dl (32.0-36.0) 08/31/18 07:10 RDW 23.3 % (11.6-15.6) H 08/31/18 07:10 Plt Count 205 K/MM3 (134-434) 08/31/18 07:10 MPV 8.8 fl (7.5-11.1) D 08/31/18 07:10 CMP Sodium 138 mmol/L (136-145) 08/29/18 22:38 Potassium 4.3 mmol/L (3.5-5.1) 08/29/18 22:38 Chloride 105 mmol/L (98-107) 08/29/18 22:38 Carbon Dioxide 24 mmol/L (21-32) 08/29/18 22:38 Anion Gap 9 MMOL/L (8-16) 08/29/18 22:38 BUN 9 mg/dL (7-18) 08/29/18 22:38 Creatinine 0.6 mg/dL (0.55-1.3) 08/29/18 22:38 Creat Clearance w eGFR > 60 (>60) 08/29/18 22:38 Random Glucose 67 mg/dL (74-106) L 08/29/18 22:38 Calcium 8.9 mg/dL (8.5-10.1) 08/29/18 22:38 Total Bilirubin 0.2 mg/dL (0.2-1) 08/29/18 22:38 AST 20 U/L (15-37) 08/29/18 22:38 ALT 31 U/L (13-61) 08/29/18 22:38 Alkaline Phosphatase 93 U/L (45-117) 08/29/18 22:38 Total Protein 6.9 g/dl (6.4-8.2) 08/29/18 22:38 Albumin 3.0 g/dl (3.4-5.0) L 08/29/18 22:38 CARDIAC ENZYMES Troponin I < 0.02 ng/ml (0.00-0.05) 08/31/18 12:30 Current Medications Generic Name Dose Route Start Last Admin Trade Name Freq PRN Reason Stop Dose Admin Acetaminophen 650 mg 08/30/18 08:07 08/31/18 15:13 Tylenol - PO 650 mg Q3H PRN Administration FEVER Benzocaine 1 spray 08/30/18 08:07 Americaine 20% [place] - TP PRN PRN Pain - Topical Benzocaine 1 applic 08/30/18 08:07 Americaine Ointment - TP PRN PRN Pain - Topical Bisacodyl 10 mg 08/30/18 08:07 Dulcolax Suppository - RC PRN PRN CONSTIPATION Butorphanol Tartrate 2 mg 08/30/18 04:31 08/30/18 04:00 Stadol - IVPB 2 mg Q4H PRN Administration PAIN Diphenhydramine HCl 50 mg 08/30/18 21:56 08/30/18 22:42 Benadryl - PO 50 mg HS PRN Administration ITCHING Ferrous Sulfate 325 mg 08/30/18 10:00 08/31/18 09:05 Feosol - PO 325 mg BID MAR Administration Oxytocin/Sodium Chloride 20 unit in 1,000 mls @ 150 mls/hr 08/30/18 04:45 03:55 Normal Saline+20 Units Oxytocin - IV 150 mls/hr ASDIR MAR Administration Ibuprofen 600 mg 08/30/18 08:07 08/31/18 15:12 Motrin - PO 600 mg Q4H PRN Administration PAIN LEVEL 1-5 Methylergonovine Maleate 0.2 mg 08/30/18 04:13 08/30/18 06:10 Methergine Injection - IM 0.2 mg Q4H PRN Administration EXCESSIVE BLEEDING Methylergonovine Maleate 0.2 mg 08/30/18 08:07 Methergine Injection - IM Q4H PRN EXCESSIVE BLEEDING (L&D) Ondansetron HCl 4 mg 08/30/18 09:37 Zofran Injection IVPUSH Q6H PRN NAUSEA AND/OR VOMITING Multivit/Folic Acid/Iron 1 tab 08/30/18 10:00 08/31/18 09:05 Vitamins (Sjr) - PO 1 tab DAILY MAR Administration Promethazine HCl 25 mg 08/30/18 04:32 08/30/18 04:00 Phenergan Injection - IVPB 25 mg Q4H PRN Administration PAIN Senna/Docusate Sodium 2 tablet 08/31/18 22:00 Pericolace - PO HS PRN CONSTIPATION Witch Lavinia/Glycerin 1 pad 08/30/18 08:07 Tucks Pads - TP PRN PRN Pain - Topical Home Medications Medication Instructions Recorded Ibuprofen 800 mg PO ONCE 10/29/17 Acetaminophen W/ Codeine #3 1 tab PO Q6H PRN #10 tablet MDD 4 10/30/17 [Tylenol # 3 -] Ferrous Sulfate 325 mg PO BID #90 tablet 08/30/18 Ibuprofen [Motrin -] 600 mg PO TID #21 tablet 08/30/18 Urine Test Results Urine Color Dkyellow 08/29/18 22:38 Urine Appearance Cloudy 08/29/18 22:38 Urine pH 6.0 (5.0-8.0) 08/29/18 22:38 Ur Specific [place] 1.030 (1.010-1.035) 08/29/18 22:38 Urine Protein 1+ (NEGATIVE) H 08/29/18 22:38 Urine Glucose (UA) Negative (NEGATIVE) 08/29/18 22:38 Urine Ketones Negative (NEGATIVE) 08/29/18 22:38 Urine Blood 1+ (NEGATIVE) H 08/29/18 22:38 Urine Nitrite Negative (NEGATIVE) 08/29/18 22:38 Urine Bilirubin Negative (<2.0 mg/dL) 08/29/18 22:38 Ur Leukocyte Esterase 3+ (NEGATIVE) H 08/29/18 22:38 Ur Epithelial Cells Few /HPF (FEW) 08/29/18 22:38 Urine Bacteria Rare /hpf (NONE SEEN) 08/29/18 22:38 Urine Mucus Moderate 08/29/18 22:38 ASSESSMENT AND PLAN: The patient is a 32-year-old female with a PMHx of uterine fibroids, ectopic who is status post D&C for spontaneous for twins. Patient complained of sub sternal chest pain without radiation to the left arm, reproducible on palpation . # Substernal chest pain most likely due to having anemia due to acute blood lose s/p 4 units of RRBC , will repeat the cbc 4 hrs post transfusion. -EKG taken during pain episode shows NSR with no T wave changes. -Troponin negative times one nxt repeat at 6:30pm # Symptomatic anemia due to acute blood loss # Acute UTI , urine culture, IV Rocephin 1gm daily upon discharge please give Ceftin 250mg po bid x 5 days. We will continue to follow the patient. Thank you for this consultative opportunity.
[2018-08-31 18:32] LABS: BASO % 0.4 % (0-2.0); EOS % 0.3 % (0-4.5); HEMOGLOBIN 9.9 GM/dL (10.7-15.3); LYMPH % 17.8 % (8-40); MCH 27.2 pg (25.7-33.7); MCHC 34.2 g/dl (32.0-36.0); MEAN CELL VOLUME 79.6 fl (80-96); MONO % 5.7 % (3.8-10.2); NEUT % 75.8 % (42.8-82.8); PLATELET COUNT 218 K/MM3 (134-434); RBC 3.64 M/mm3 (3.60-5.2); RDW 21.3 % (11.6-15.6); WHITE BLOOD COUNT 13.5 K/mm3 (4.0-10.0)
[2018-08-31] MEDS ORDERED: cefTRIAXone SODIUM 1 GM VIAL ONE (18:43)
[2018-08-31] MEDS ORDERED: DEXTROSE 5%-WATER - 50 ML IVPB ONE (18:44)
[2018-08-31] MEDS: CEFTRIAXONE 1 GM in DEXTROSE 5%-WATER - 50 ML IVPB SCH (18:54)
--- NOTE | 2018-08-31 19:46 | EKG ---
Test Reason : Blood Pressure : / mmHG Vent. Rate : 075 BPM Atrial Rate : 075 BPM P-R Int : 140 ms QRS Dur : 084 ms QT Int : 364 ms P-R-T Axes : 032 021 025 degrees QTc Int : 406 ms NORMAL SINUS RHYTHM NORMAL ECG NO PREVIOUS ECGS AVAILABLE Confirmed by MD RICH, GIOVANI ([id number]) on 08/31/2018 7:45:38 PM Referred By: NAVI SMITH Confirmed By:GIOVANI VILLANUEVA MD
[2018-08-31] MEDS ORDERED: SENNOSIDES/DOCUSATE COMBO (SENNA PLUS) TABLET (UD) PO PRN (22:00)
[2018-09-01] MEDS ORDERED: oxyCODONE HCL 5 MG TABLET PO ONE (00:45)
[2018-09-01] MEDS: ACETAMINOPHEN 325 MG TABLET (FP) PO PRN ×2 (00:50→06:26)
[2018-09-01] MEDS: diphenhydrAMINE HCL 25 MG CAPSULE (FP) PO PRN (00:53)
[2018-09-01] MEDS: IBUPROFEN 600 MG TABLET (FP) PO PRN (06:30)
--- NOTE | 2018-09-01 08:24 | PN ---
Progress Note (short form) - Note Progress Note: doing well, ambulating, no acute events over night, no chest lashonda or shortness of breath no active vaginal bleeding CBC, BMP 08/31/18 17:45 08/29/18 22:38 Last Vital Signs Temp Pulse Resp BP Pulse Ox 97.9 F 79 18 110/63 100 08/31/18 22:00 08/31/18 22:00 08/31/18 22:00 08/31/18 22:00 08/31/18 22:00 abdomen soft, non tender, no cva uteus firm, non tender lochia mild impression doing well, no c/o, medically clear to go home today plan d/c home , on po augmentin for possible uti since already started on cephtiaxone follow up clinic 2 weeks instruction given Problem List - Problems (1) with 16 completed weeks gestation Code(s): Z3A.16 - 16 WEEKS GESTATION OF (2) Spontaneous Code(s): O03.9 - COMPLETE OR UNSP SPONTANEOUS WITHOUT COMPLICATION (3) Retained placenta Code(s): O73.0 - RETAINED PLACENTA WITHOUT HEMORRHAGE Qualifiers: Retained placenta detail: portions of placenta Qualified Code(s): O73.1 - Retained portions of placenta and membranes, without hemorrhage
[2018-09-01] MEDS: CEFTRIAXONE 1 GM in DEXTROSE 5%-WATER - 50 ML IVPB SCH (10:10)
[2018-09-01] MEDS: PRENATAL VITAMINS W/ FOLIC ACID TABLET (FP) PO SCH (10:10)
[2018-09-01] MEDS: FERROUS SO4 325 MG TABLET (FP) PO SCH (10:10)
[2018-09-01 10:13] VITALS: BP 103/56; PULSE 65; TEMP 98.2
--- NOTE | 2018-09-01 10:44 | DS ---
Physical Exam-[employer] [employer] [facility] Vital Signs: Vital Signs Temperature 98.2 F 09/01/18 10:00 Pulse Rate 65 09/01/18 10:00 Respiratory Rate 18 09/01/18 10:00 Blood Pressure 103/56 L 09/01/18 10:00 O2 Sat by Pulse Oximetry (%) 100 08/31/18 22:00 Constitutional: Yes: Well Nourished, No Distress, Calm Eyes: Yes: WNL, Conjunctiva Clear, EOM Intact HENT: Yes: WNL, Atraumatic, Normocephalic Neck: Yes: WNL, Supple, Trachea Midline Cardiovascular: Yes: WNL, Regular Rate and Rhythm Respiratory: Yes: WNL, Regular, CTA Bilaterally Gastrointestinal: Yes: WNL ...Rectal Exam: Yes: WNL Renal/: Yes: WNL ....Post : Yes: Uterus firm, Uterus non-tender, Slight lochia rubra Breast(s): Yes: WNL Musculoskeletal: Yes: WNL Extremities: Yes: WNL Edema: No Integumentary: Yes: WNL Neurological: Yes: WNL, Alert, Oriented ...Motor Strength: WNL Psychiatric: Yes: WNL, Alert, Oriented Labs: CBC, BMP 08/31/18 17:45 08/29/18 22:38 Discharge Summary Reason For Visit: SPONTANEOUS , twins 16 weeks, retained elizabet Current Active Problems with 16 completed weeks gestation (Acute) Retained placenta (Acute) Spontaneous (Acute) Procedures: Principal: EUA, manual removal of placenta , suction D&C Hospital Course: anemia, s/p blood transfusion pod 1 c/o chest pain , normal EKG, troponin negative Condition: Guarded - Instructions Diet, Activity, Other Instructions: regular diet, follow up [facility] care 2 weeks , if pain, heavy vaginal bleeding , fever, dizziness to ER Referrals: Onel Gray MD [Staff Physician] - Disposition: HOME - Home Medications Comprehensive Discharge Medication List: Ambulatory Orders Ibuprofen 800 mg PO ONCE 10/29/17 Acetaminophen W/ Codeine #3 [Tylenol # 3 -] 1 tab PO Q6H PRN #10 tablet MDD 4 Ferrous Sulfate 325 mg PO BID #90 tablet 08/30/18 Ibuprofen [Motrin -] 600 mg PO TID #21 tablet 08/30/18 Amox-Tr/K Cl [Augmentin - 500Mg Tablet] 1 tab PO BID #6 tab 09/01/18
--- NOTE | 2018-09-01 11:14 | OP ---
DATE OF OPERATION: 08/30/2018 PREOPERATIVE DIAGNOSES: Status post spontaneous delivery of 16 weeks' gestation, twins, retained placenta, bleeding and fibroid uterus. POSTOPERATIVE DIAGNOSES: Status post spontaneous delivery of 16 weeks' gestation, twins, retained placenta, bleeding and fibroid uterus. PROCEDURE: Manual removal of placenta and suction dilatation and curettage. SURGEON: Onel Gray MD ANESTHESIA: General. ESTIMATED BLOOD LOSS: 700 mL. OPERATION: Patient was taken to the operating room. Had adequate general anesthesia. Examination under anesthesia revealed external genitalia to be normal. Vagina: Several blood clots in the vault which were removed. Os was open and uterus was enlarged and approximately 20 weeks' size with fibroids. Then with a weighted speculum in the vagina anterior lip of the cervix was grasped with ring forceps and the placenta was removed with the ring forceps. There was a large amount of bleeding noted. Then a suction curet was inserted into the uterine cavity and the content was suctioned. A large amount of tissue was obtained. The uterine cavity appeared to be irregular consistent with fibroid and very difficult to access because of irregularity of the endometrial cavity and the fibroid. Patient tolerated the procedure well. Left the OR in good condition. Edwin [id number]
--- NOTE | 2018-09-01 15:55 | PN ---
Physical Exam: SUBJECTIVE: Patient seen and examined at bedside; no acute events ovenright patient is no longer having chest pains- she denies any SOB/N/V fevers or chills OBJECTIVE: Vital Signs Period Temp Pulse Resp BP Sys/Guevara Pulse Ox Last 24 Hr 97.9 F-98.2 F 65-82 18-20 103-114/56-63 100 GENERAL: The patient is awake, alert, and fully oriented, in no acute distress. EYES: PEERLA: EOMI; no scleral icterus NECK: no JVD; no lymphadenopathy LUNGS: CTA B/L; no rales, rhonchi or wheezing HEART: Regular rate and rhythm, S1, S2 without murmur, rub or gallop. ABDOMEN: Soft, nontender, nondistended, normoactive bowel sounds, no guarding, no rebound, no hepatosplenomegaly, no masses. EXTREMITIES: 2+ pulses, warm, well-perfused, no edema. NEUROLOGICAL: Cranial nerves II through XII grossly intact. Normal speech, gait not observed. PSYCH: Normal mood, normal affect. SKIN: Warm, dry, normal turgor, no rashes or lesions noted Laboratory Results - last 24 hr 08/31/18 08/31/18 17:45 17:45 WBC 13.5 H RBC 3.64 Hgb 9.9 L Hct 29.0 L D MCV 79.6 L MCH 27.2 MCHC 34.2 RDW 21.3 H Plt Count 218 MPV 9.0 Absolute Neuts (auto) 10.3 H Neutrophils % 75.8 Lymphocytes % 17.8 D Monocytes % 5.7 Eosinophils % 0.3 Basophils % 0.4 Nucleated RBC % 0 Troponin I < 0.02 ASSESSMENT/PLAN: The patient is a 32-year-old female with a past medical history of uterine fibroids, ectopic who is status post D&C for spontaneous . Patient complained of sub sternal chest pain without radiation reproducible on palpation is 9 AM yesterday morning. #Substernal chest pain -EKG taken during pain episode shows NSR with no T wave changes. -Troponin negative times two -The patient's pain is reproducible on palpation, non-radiating, not associated with shortness of breath. -The patient has no other risk factors for CAD. -For the above reasons, ACS is less likely. Will trend troponin Q6H to objectively rule out ACS. -The patient's chest pain is more likely secondary to symptomatic anemia versus anxiety versus acid reflux. -Prescribed Protonix 40mg PO once Problem List - Problems (1) with 16 completed weeks gestation Code(s): Z3A.16 - 16 WEEKS GESTATION OF (2) Spontaneous Code(s): O03.9 - COMPLETE OR UNSP SPONTANEOUS WITHOUT COMPLICATION Visit type - Emergency Visit Emergency Visit: Yes ED Registration Date: 08/30/18 Care time: The patient presented to the Emergency Department on the above date and was hospitalized for further evaluation of their emergent condition. - New Patient This patient is new to me today: Yes Date on this admission: 09/01/18 - Critical Care Critical Care patient: No
--- NOTE | 2018-09-02 10:54 | PATH ---
Surgical Pathology Report Patient Name: MIGUEL ÁNGEL MOTA Med. Rec. #: [id number] /Age/Gender: 1985 (Age: 32) / F Account: [id number] Location: [facility] OBS/COMMERCIAL REAL ESTATE LENDER Taken: 08/29/2018 Received: 08/30/2018 Reported: 09/02/2018 Physicians: PHYSICIAN EMERGENCY DEPT Onel Gray M.D. Specimen(s) Received A: FETUS 1 (LARGER), FETUS 2 AND PLACENTAL TISSUE B: UTERINE CONTENTS Clinical History A1, 15 week twin presented with abdominal cramping, both fetuses miscarried in ED Final Diagnosis A. FETUS ( 1, 2), DELIVERY: 43 G IMMATURE PHENOTYPICALLY MALE FETUS (1). CROWN TO HEEL LENGTH 12 CM FOOT LENGTH 1.4 CM NO DYSMORPHIC FEATURES. NO GROSS ANATOMIC ABNORMALITIES. TRIVASCULAR UMBILICAL CORD. 42 G IMMATURE PHENOTYPICALLY MALE FETUS (2). CROWN TO HEEL LENGTH 11.9 CM FOOT LENGTH 1.4 CM NO DYSMORPHIC FEATURES. NO GROSS ANATOMIC ABNORMALITIES. TRIVASCULAR UMBILICAL CORD. B. CONTENTS OF UTERUS, DILATATION AND CURETTAGE: FRAGMENTED IMMATURE PLACENTA AND DECIDUA. Electronically Signed Yun Jose M.D. Gross Description A. Received fresh, labeled with the patient's name and indicated on the requisition to be a spontaneous , are 2 intact fetuses. The larger fetus is designated "fetus 1" and the smaller fetus is designated "fetus 2", per the surgeon. Fetus 1 is 43 g and measures 8.6 cm from crown to rump. Fetus 1 measures 12.0 cm from crown to heel and each foot measures 1.4 cm from heel to toe. The anus and the nares are patent. The eyelids are fused shut. The upper and lower extremities are normal and well proportioned, without any bony defects. Each hand and foot displays 5 digits. There are no axial defects and the lumbosacral spine is intact. The skin is mildly macerated. There is a 10 cm in length x 0.3 cm in diameter umbilical cord attached at the umbilicus. The umbilical cord displays 3 vessels. The heart is normally positioned. No cardiac or lung abnormalities are noted. The abdominal organs occupy their normal anatomic position. The kidneys and adrenals are well formed and the genitourinary tract is unremarkable. The external genitalia are well formed and that of a male. The brain is neely and gelatinous. Fetus 2 is 42 g and measures 8.5 cm from crown to rump. Fetus 2 measures 11.9 cm from crown to heel and each foot measures 1.4 cm from heel to toe. The anus and the nares are patent. The eyelids are fused shut. The upper and lower extremities are normal and well proportioned, without any bony defects. Each hand and foot displays 5 digits. There are no axial defects and the lumbosacral spine is intact. There is a 7.5 cm in length x 0.3 cm in diameter umbilical cord attached at the umbilicus. The umbilical cord displays 3 vessels. The heart is normally positioned. No cardiac or lung abnormalities are noted. The abdominal organs occupy their normal anatomic position. The kidneys and adrenals are well formed and the genitourinary tract is unremarkable. The external genitalia are well formed and that of a male. The brain is neely and gelatinous. Separately received within the same container is a 7.0 x 5.5 x 1.2 cm aggregate of red-brown blood clot, possibly containing soft tissue fragments. Artist Relationship Manager sections are submitted in 9 cassettes as follows: 1-fetus 1 umbilical cord, ribs, heart and lungs; 2-fetus 1 stomach, intestines, spleen and liver; 3-fetus 1 kidneys, adrenals and testes; 4-fetus 1 brain; 5-fetus 2 umbilical cord, ribs, heart and lungs; 6-fetus 2 stomach, intestines, spleen and liver; 7-fetus 2 kidneys, adrenals and testes; 8-fetus 2 brain; 9-separately received blood clot. B. Received in formalin labeled "contents of uterus," is a 19.5 x 16.0 x 3.3 cm aggregate of red-brown soft tissue fragments admixed with blood clot, consistent with fragmented placental tissue. Artist Relationship Manager sections are submitted in 3 cassettes. 08/30/2018 [facility]08/30/2018
== END 2018-09-01 10:50 | disposition home or self-care (01) ==
LOC: JER 21:12 → JERBED 08-30 01:11 → J3W 08-30 03:44
PROVIDERS: ADMIT Obstetrics & Gynecology; ATTEND Obstetrics & Gynecology
PROC: 30233N1 Transfusion of Nonautologous Red Blood Cells into Peripheral Vein, Percutaneous Approach (ICD-10-PCS; 2018-08-30)
PROC: 3E03329 Introduction of Other Anti-infective into Peripheral Vein, Percutaneous Approach (ICD-10-PCS; 2018-08-30)
PROC: 3E033NZ Introduction of Analgesics, Hypnotics, Sedatives into Peripheral Vein, Percutaneous Approach (ICD-10-PCS; 2018-08-30)
PROC: 3E0337Z Introduction of Electrolytic and Water Balance Substance into Peripheral Vein, Percutaneous Approach (ICD-10-PCS; 2018-08-30)
PROC: 3E033GC Introduction of Other Therapeutic Substance into Peripheral Vein, Percutaneous Approach (ICD-10-PCS; 2018-08-30)
PROC: 3E023GC Introduction of Other Therapeutic Substance into Muscle, Percutaneous Approach (ICD-10-PCS; 2018-08-30)
PROC: 10D17Z9 Manual Extraction of Products of Conception, Retained, Via Natural or Artificial Opening (ICD-10-PCS; principal; 2018-08-30 07:40)
DX: O03.4 Incomplete spontaneous abortion without complication (principal); Z3A.16 16 weeks gestation of pregnancy; O72.1 Other immediate postpartum hemorrhage; O73.1 Retained portions of placenta and membranes, without hemorrhage; D25.9 Leiomyoma of uterus, unspecified; Z98.84 Bariatric surgery status; N93.9 Abnormal uterine and vaginal bleeding, unspecified; R07.9 Chest pain, unspecified; M79.601 Pain in right arm; D50.0 Iron deficiency anemia secondary to blood loss (chronic); N39.0 Urinary tract infection, site not specified
CPT/HCPCS: 36415; 36430; 76815; 76830-TC; 80053; 81003; 81015; 84484; 84702; 85025; 86850; 86900; 86901; 86922; 87086; 88305-TC; 93005; 93010; 94760; 96361; 96372; 96374; 96375; 96376; 99282-25; G0378; J0131; J7030; P9038; P9058

== ENCOUNTER 2019-04-11 14:04 | Emergency (ER) | payer OTHER ==
--- NOTE | 2019-04-11 14:10 | PDOC ---
Rapid Medical Evaluation Time Seen by Provider: 04/11/19 14:05 Medical Evaluation: Allergies Allergy/AdvReac Type Severity Reaction Status Date / Time No Known Allergies Allergy Verified 08/29/18 21:20 04/11/19 14:05 CC: lower back pain radiating to RLE PE: No focal findings. Orders: urine Pt will proceed to ER for further evaluation. Discharge Disposition - Diagnosis Back pain - Referrals - Patient Instructions - Post Discharge Activity
[2019-04-11] MEDS ORDERED: ACETAMINOPHEN 500 MG TABLET (FP) PO ONE (14:11)
[2019-04-11 14:18] VITALS: BP 115/74; PULSE 71; TEMP 97.5; BMI 25.0
[2019-04-11 14:46] LABS: PH,URINE 6.5 (5.0-8.0); URINE APPEARANCE CLEAR; URINE BILIRUBIN NEGATIVE (NEGATIVE); URINE COLOR YELLOW; URINE GLUCOSE (UA) NEGATIVE (NEGATIVE); URINE KETONE 1+ (NEGATIVE); URINE LEUK ESTERASE NEGATIVE (NEGATIVE); URINE NITRITE NEGATIVE (NEGATIVE); URINE PROTEIN NEGATIVE (NEGATIVE); URINE UROBILINOGEN 0.2 mg/dL (0.2-1.0)
[2019-04-11] MEDS ORDERED: ACETAMINOPHEN 500 MG TABLET (FP) ONE (15:44)
--- NOTE | 2019-04-11 16:49 | PDOC ---
History of Present Illness - General Chief Complaint: Pain Stated Complaint: right hip/leg pain Time Seen by Provider: 04/11/19 14:05 History Source: Patient Exam Limitations: No Limitations - History of Present Illness Initial Comments: 04/11/19 16:43 33 year old female with medical history of asthma, , presents with right lower back pain radiating to right lower leg x 3 days and suprapubic pain. Patient reports no burning with urination, states pain worse today making it difficult for her to walk. Denies vaginal bleeding or discharge. Timing/Duration: reports: getting worse Quality: reports: moderate Abdominal Pain Onset Location: reports: suprapubic, flank Pain Radiation: reports: other (right lower leg) Activities at Onset: reports: none Treatment Prior to Arrive: improves with: analgesics Aggravating Factors: improves with: None Alleviating Factors: improves with: None Past History - Travel Traveled outside of the country in the last 30 days: No Close contact w/someone who was outside of country & ill: No - Past Medical History Allergies/Adverse Reactions: Allergies Allergy/AdvReac Type Severity Reaction Status Date / Time No Known Allergies Allergy Verified 04/11/19 14:12 Home Medications: Ambulatory Orders Ibuprofen 800 mg PO ONCE 10/29/17 Acetaminophen W/ Codeine #3 [Tylenol # 3 -] 1 tab PO Q6H PRN #10 tablet MDD 4 Ferrous Sulfate 325 mg PO BID #90 tablet 08/30/18 Ibuprofen [Motrin -] 600 mg PO TID #21 tablet 08/30/18 Amox-Tr/K Cl [Augmentin - 500Mg Tablet] 1 tab PO BID #6 tab 09/01/18 Pnv,Calcium 72/Iron/Folic Acid [ Vitamin with Low Iron] 1 each PO DAILY #90 tablet 04/11/19 Anemia: No Asthma: Yes Cancer: No Cardiac Disorders: No CVA: No COPD: No CHF: No DVT: No Dementia: No Diabetes: No GI Disorders: No Disorders: No HTN: No Hypercholesterolemia: No Liver Disease: No Seizures: No Thyroid Disease: No - Surgical History Abdominal Surgery: Yes (gastric sleeve) - Reproductive History (#): 2 Para: 0 Cervical CA: No Dysfunctional Uterine Bleeding: No Ectopic : No Endometrial CA: No Polycystic Ovaries: No Therapeutic (s) & number: No Tubal Ligation: No Spontaneous : 0 - Immunization History Immunization Up to Date: Yes - Psycho Social/Smoking Cessation Hx Smoking Status: No Smoking History: Current every day smoker Have you smoked in the past 12 months: Yes Number of Cigarettes Smoked Daily: 0 Information on smoking cessation initiated: Yes Hx Alcohol Use: Yes Drug/Substance Use Hx: No Substance Use Type: None Abd/GI Specific PMHX - Complaint Specific PMHX Colitis: No Diverticulitis: No Hepatitis: No Irritable Bowel Synd (IBS): No GI Ulcer Disease: No Review of Systems - Review of Systems Able to Perform ROS?: Yes Is the patient limited [place]an proficient: No Constitutional: No: Chills, Fever HEENTM: No: Cataracts, Nose Congestion Respiratory: No: Shortness of Breath, Wheezing Cardiac (ROS): No: Chest Pain, Lightheadedness : No: Burning, Dysuria, Hematuria, Testicular Swelling Musculoskeletal: Yes: Back Pain. No: Gout, Joint Pain, Muscle Weakness Neurological: No: Headache, Numbness, Tingling Hematologic/Lymphatic: No: Blood Clots *Physical Exam - Vital Signs Last Vital Signs Temp Pulse Resp BP Pulse Ox 97.5 F L 71 16 115/74 100 04/11/19 14:13 04/11/19 14:13 04/11/19 14:13 04/11/19 14:13 04/11/19 14:13 - Physical Exam General Appearance: Yes: Nourished, Appropriately Dressed HEENT: positive: TMs Normal, Pharynx Normal Neck: positive: Supple. negative: Lymphadenopathy (R), Lymphadenopathy (L) Respiratory/Chest: positive: Lungs Clear, Normal Breath Sounds. negative: Chest Tender Cardiovascular: positive: Regular Rhythm, Regular Rate Gastrointestinal/Abdominal: negative: Tender, Tenderness Musculoskeletal: positive: Normal Inspection. negative: CVA Tenderness (R), Vertebral Tenderness Extremity: positive: Normal Inspection Neurologic: positive: Fully Oriented ED Treatment Course - ADDITIONAL ORDERS Additional order review: Laboratory Results 04/11/19 04/11/19 14:29 14:29 Urine Color Yellow Urine Appearance Clear Urine pH 6.5 Ur Specific [place] 1.018 Urine Protein Negative Urine Glucose (UA) Negative Urine Ketones 1+ H Urine Blood Negative Urine Nitrite Negative Urine Bilirubin Negative Urine Urobilinogen 0.2 Ur Leukocyte Esterase Negative Urine HCG, Qual Positive - RADIOLOGY Radiology Studies Ordered: Category Date Time Status <14WKS US [US] Stat Ultrasound 04/11/19 15:27 Ordered - Medications Given in the ED: ED Medications Discontinued Medications Generic Name Dose Route Start Last Admin Trade Name Azra PRN Reason Stop Dose Admin Acetaminophen 1,000 mg 04/11/19 14:11 04/11/19 15:52 Tylenol - PO 04/11/19 14:12 1,000 mg ONCE ONE Administration Medical Decision Making - Medical Decision Making 04/11/19 16:47 33 year old female with medical history of asthma, , presents with right lower back pain radiating to right lower leg x 3 days and suprapubic pain. back pain -urine -urinalysis -analgesia + test u/a : -blood, - nitrite 04/11/19 19:53 +bhcg 1665.7 ultrasound positive for gestational sac in the uterus d/c with referral to transfer table operator and primary physician rx : vitatmins Discharge - Discharge Information Problems reviewed: Yes Clinical Impression/Diagnosis: Back pain Qualifiers: Back pain location: low back pain Chronicity: acute Back pain laterality: right Sciatica presence: without sciatica Qualified Code(s): M54.5 - Low back pain Qualifiers: Weeks of gestation: less than 8 weeks Qualified Code(s): Z3A.01 - Less than 8 weeks gestation of Condition: Good Disposition: HOME - Admission No - Additional Discharge Information Prescriptions: Pnv,Calcium 72/Iron/Folic Acid [ Vitamin with Low Iron] 1 each PO DAILY #90 tablet - Follow up/Referral Referrals: Judith Car MD [Staff Physician] - (call for appointment ) - Patient Discharge Instructions Patient Printed Discharge Instructions: Medications and , Low Back Pain Additional Instructions: May take regular strength tylenol Call genetic coordinator for follow up appointment Return to emergency department for bleeding, or worsening pain Drink plenty of fluids and milk - Post Discharge Activity Work/Back to School Note: Back to Work
== END 2019-04-11 18:29 | disposition home or self-care (01) ==
LOC: JERFT 14:04 → JER 14:04 → JERFT 18:29
DX: O26.891 Other specified pregnancy related conditions, first trimester (principal); M54.5 Low back pain; Z3A.01 Less than 8 weeks gestation of pregnancy; Z87.09 Personal history of other diseases of the respiratory system; Z98.84 Bariatric surgery status
CPT/HCPCS: 36415; 76801-TC; 81003; 84702; 84703; 87086; 99282-25

== ENCOUNTER 2019-05-27 00:09 | Emergency (ER) | payer OTHER ==
[2019-05-27] MEDS ORDERED: SODIUM CHLORIDE 0.9% 500 ML INFUS.BAG IV ONE (00:33)
[2019-05-27] MEDS ORDERED: ACETAMINOPHEN 1000 MG/100 ML VIAL (NON FORMULARY) IVPB ONE (00:33)
--- NOTE | 2019-05-27 00:37 | PDOC ---
History of Present Illness - General Chief Complaint: Headache Stated Complaint: HEADACHE, 12WKS PREG Time Seen by Provider: 05/27/19 00:28 - History of Present Illness Initial Comments: 05/27/19 00:33 CHIEF COMPLAINT: Headache HISTORY OF PRESENT ILLNESS: 33 yo 12 week F with no PMH presents to ED with headache. Patient denies any symptoms including abdominal pain, vaginal bleeding, vaginal discharge, dizziness, nausea, vomiting, diarrhea, fever, or chills. Patient reports that she has taken Tylenol with minimal relief and that her headache has been so persistent she was concerned that her blood pressure might be high. No recent travel or sick contacts. PAST MEDICAL HISTORY: Denies past medical history FAMILY HISTORY: Denies SOCIAL HISTORY: Denies tobacco, alcohol, illicit drug use. SURGICAL HISTORY: Denies ALLERGIES: No known drug allergies REVIEW OF SYSTEMS General/Constitutional: Denies fever or chills. Denies weakness, weight change. HEENT: Denies change in vision. Denies ear pain or discharge. Denies sore throat. Cardiovascular: Denies chest pain or shortness of breath. Respiratory: Denies cough, wheezing, or hemoptysis. Gastrointestinal: Denies nausea, vomiting, diarrhea or constipation. Denies rectal bleeding. Genitourinary: Denies dysuria, frequency, or change in urination. Musculoskeletal: Denies joint or muscle swelling or pain. Denies neck or back pain. Skin and breasts: Denies rash or easy bruising. Neurologic: Headache x5 days. Denies vertigo, loss of consciousness, or loss of sensation. Psychiatric: Denies depression or anxiety. Endocrine: Denies increased thirst. Denies abnormal weight change. Hematologic/Lymphatic: Denies anemia, easy bleeding, or history of blood clots. Allergic/Immunologic: Denies hives or skin allergy. Denies latex allergy. PHYSICAL EXAM General Appearance: Well-appearing, appropriately dressed. No apparent distress , no intoxication. HEENT: EOMI, PERRLA, normal ENT inspection, normal voice, TMs normal, pharynx normal. No conjunctival pallor. No photophobia, scleral icterus. Neck: Supple. Trachea midline. No tenderness, rigidity, carotid bruit, stridor , lymphadenopathy, or thyromegaly. Respiratory/Chest: Lungs CTAB. No shortness of breath, chest tenderness, respiratory distress, accessory muscle use. No crackles, rales, rhonchi, stridor , wheezing, dullness Cardiovascular: RRR. S1, S2. No JVD, murmur, bradycardia, tachycardia. Vascular Pulses: Dorsalis-Pedis (R): 2+, Dorsalis-Pedis (L): 2+ Gastrointestinal/Abdominal: Normal bowel sounds. Abdomen soft, non-distended. No tenderness or rebound tenderness. No organomegaly, pulsatile mass, guarding , hernia, hepatomegaly, splenomegaly. Lymphatic: No adenopathy, tenderness. Musculoskeletal/Extremities: Normal inspection. FROM of all extremities, normal capillary refill. Pelvis Stable. No CVA tenderness. No tenderness to extremities, pedal edema, swelling, erythema or deformity. Integumentary: Appropriate color, dry, warm. No cyanosis, erythema, jaundice or rash Neurologic: trim crew supervisor II-XII intact. Fully oriented, alert. Appropriate mood/affect. Motor strength 5/5. No appreciable EOM palsy, facial droop or sensory deficit. Past History - Past Medical History Allergies/Adverse Reactions: Allergies Allergy/AdvReac Type Severity Reaction Status Date / Time No Known Allergies Allergy Verified 05/27/19 01:08 Home Medications: Ambulatory Orders Ferrous Sulfate 325 mg PO BID #90 tablet 08/30/18 Pnv,Calcium 72/Iron/Folic Acid [ Vitamin with Low Iron] 1 each PO DAILY #90 tablet 04/11/19 Anemia: No Asthma: Yes Cancer: No Cardiac Disorders: No CVA: No COPD: No CHF: No DVT: No Dementia: No Diabetes: No GI Disorders: No Disorders: No HTN: No Hypercholesterolemia: No Liver Disease: No Seizures: No Thyroid Disease: No - Surgical History Abdominal Surgery: Yes (gastric sleeve) - Reproductive History (#): 2 Para: 0 Cervical CA: No Dysfunctional Uterine Bleeding: No Ectopic : No Endometrial CA: No Polycystic Ovaries: No Therapeutic (s) & number: No Tubal Ligation: No Spontaneous : 0 - Immunization History Immunization Up to Date: Yes - Psycho Social/Smoking Cessation Hx Smoking Status: No Smoking History: Current every day smoker Have you smoked in the past 12 months: Yes Number of Cigarettes Smoked Daily: 0 Hx Alcohol Use: Yes Drug/Substance Use Hx: No Substance Use Type: None ED Treatment Course - LABORATORY CBC & Chemistry Diagram: 05/27/19 01:00 05/27/19 01:00 Medical Decision Making - Medical Decision Making 05/27/19 00:37 33 yo 12 week F presents to ED with headache. -labs, urine -tylenol, IVF Patient <20 weeks and BP WNL, no concern for preecclampsia. Discharge - Discharge Information Problems reviewed: Yes Clinical Impression/Diagnosis: Dehydration Headache in Qualifiers: Trimester: second trimester Qualified Code(s): O26.892 - Other specified related conditions, second trimester; R51 - Headache Condition: Stable Disposition: HOME - Admission No - Follow up/Referral Referrals: Daniel Tyler MD [Primary Care Provider] - - Patient Discharge Instructions Patient Printed Discharge Instructions: DI for Hormonal and Tension Headaches Additional Instructions: Please follow up with Dr. Tyler next week for continued management of your . If you develop any recurrent headache, sharp pain to your head, change in vision, elevated blood pressure, persistent vomiting, or any new or worsening symptoms, please return to the ER. - Post Discharge Activity
[2019-05-27 00:46] VITALS: BP 109/69; PULSE 72; TEMP 97.9; BMI 24.1
[2019-05-27] MEDS ORDERED: ACETAMINOPHEN INJECTION 100 ML IVPB ONE (00:49)
[2019-05-27 01:32] LABS: URINE APPEARANCE CLOUDY; URINE BILIRUBIN NEGATIVE (NEGATIVE); URINE COLOR YELLOW; URINE GLUCOSE (UA) NEGATIVE (NEGATIVE); URINE KETONE TRACE (NEGATIVE); URINE LEUK ESTERASE NEGATIVE (NEGATIVE); URINE NITRITE NEGATIVE (NEGATIVE); URINE PROTEIN NEGATIVE (NEGATIVE)
[2019-05-27 01:34] LABS: BASO % 1.3 % (0-2.0); EOS % 1.5 % (0-4.5); HEMATOCRIT 36.5 % (32.4-45.2); HEMOGLOBIN 11.7 GM/dL (10.7-15.3); LYMPH % 34.6 % (8-40); MCH 25.9 pg (25.7-33.7); MEAN CELL VOLUME 80.9 fl (80-96); MEAN PLT VOLUME 9.7 fl (7.5-11.1); MONO % 6.6 % (3.8-10.2); PLATELET COUNT 289 K/MM3 (134-434); RBC 4.51 M/mm3 (3.60-5.2); RDW 19.2 % (11.6-15.6); WHITE BLOOD COUNT 9.1 K/mm3 (4.0-10.0)
[2019-05-27 01:40] LABS: ALBUMIN 3.4 g/dl (3.4-5.0); BILIRUBIN,TOTAL 0.3 mg/dL (0.2-1); CREATININE 0.5 mg/dL (0.55-1.3); POTASSIUM 3.9 mmol/L (3.5-5.1); TOT PROT 6.9 g/dl (6.4-8.2)
--- NOTE | 2019-05-27 01:46 | PDOC ---
*Physical Exam - Vital Signs Last Vital Signs Temp Pulse Resp BP Pulse Ox 97.9 F 72 18 109/69 100 05/27/19 00:30 05/27/19 00:30 05/27/19 00:30 05/27/19 00:30 05/27/19 00:30 ED Treatment Course - LABORATORY CBC & Chemistry Diagram: 05/27/19 01:00 05/27/19 01:00 - ADDITIONAL ORDERS Additional order review: Laboratory Results 05/27/19 05/27/19 01:04 01:00 Sodium 137 Potassium 3.9 Chloride 104 Carbon Dioxide 24 Anion Gap 9 BUN 10.0 Creatinine 0.5 L Est GFR (CKD-EPI)AfAm 147.38 Est GFR (CKD-EPI)NonAf 127.16 Random Glucose 70 L Calcium 9.0 Total Bilirubin 0.3 AST 18 ALT 26 Alkaline Phosphatase 45 Total Protein 6.9 Albumin 3.4 Urine Color Yellow Urine Appearance Cloudy Urine pH 6.0 Ur Specific [place] 1.038 H Urine Protein Negative Urine Glucose (UA) Negative Urine Ketones Trace H Urine Blood Negative Urine Nitrite Negative Urine Bilirubin Negative Urine Urobilinogen 1.0 Ur Leukocyte Esterase Negative 05/27/19 01:00 RBC 4.51 MCV 80.9 MCHC 32.0 RDW 19.2 H MPV 9.7 Neutrophils % 56.0 D Lymphocytes % 34.6 D Monocytes % 6.6 Eosinophils % 1.5 D Basophils % 1.3 D - Medications Given in the ED: ED Medications Discontinued Medications Generic Name Dose Route Start Last Admin Trade Name Freq PRN Reason Stop Dose Admin Acetaminophen 1,000 mg 05/27/19 00:33 05/27/19 01:06 Ofirmev Injection - IVPB 05/27/19 00:34 1,000 mg ONCE ONE Administration Sodium Chloride 1,000 ml 05/27/19 00:33 05/27/19 01:06 Normal Saline - IV 05/27/19 00:34 1,000 ml ONCE ONE Administration Medical Decision Making - Medical Decision Making 05/27/19 01:45 Case reviewed, agree with assessment and plan Discharge - Discharge Information Problems reviewed: Yes Clinical Impression/Diagnosis: Dehydration Headache in Qualifiers: Trimester: second trimester Qualified Code(s): O26.892 - Other specified related conditions, second trimester Condition: Stable Disposition: HOME - Follow up/Referral Referrals: Daniel Tyler MD [Primary Care Provider] - - Patient Discharge Instructions Patient Printed Discharge Instructions: DI for Hormonal and Tension Headaches Additional Instructions: Please follow up with Dr. Tyler next week for continued management of your . If you develop any recurrent headache, sharp pain to your head, change in vision, elevated blood pressure, persistent vomiting, or any new or worsening symptoms, please return to the ER. - Post Discharge Activity
== END 2019-05-27 01:56 | disposition home or self-care (01) ==
LOC: JER 00:09
PROC: 3E033NZ Introduction of Analgesics, Hypnotics, Sedatives into Peripheral Vein, Percutaneous Approach (ICD-10-PCS; principal; 2019-05-27)
DX: O26.891 Other specified pregnancy related conditions, first trimester (principal); Z3A.12 12 weeks gestation of pregnancy; R51 Headache; F17.210 Nicotine dependence, cigarettes, uncomplicated
CPT/HCPCS: 36415; 80053; 81003; 85025; 96374; 99282-25; J0131

== ENCOUNTER 2019-06-20 12:44 | Emergency (ER) | payer OTHER ==
[2019-06-20 13:01] VITALS: BP 104/55; PULSE 79; TEMP 97.8; BMI 24.4
--- NOTE | 2019-06-20 13:32 | PDOC ---
History of Present Illness - General Chief Complaint: Pain Stated Complaint: ABD PAIN 15 WKS PRGT Time Seen by Provider: 06/20/19 13:31 History Source: Patient Exam Limitations: No Limitations - History of Present Illness Initial Comments: 06/20/19 13:31 Sammi Altamirano is a 33F at 15 weeks with PMH presenting with abdominal pain. Describes 2 days of slow onset abdominal pain with mild nausea, no vomiting, no C/D. Pain is suprapubic across the lower abdomen without radiation, constant. Normal appetite. Denies fever/chills, urinary sx, LOYD, dizziness, chest pain, SOB. Has chronic lower back pain associated with . Sent by her OBGYN for evaluation of her abdominal pain and US to check on baby. Past History - Past Medical History Allergies/Adverse Reactions: Allergies Allergy/AdvReac Type Severity Reaction Status Date / Time No Known Allergies Allergy Verified 05/27/19 01:08 Home Medications: Ambulatory Orders Ferrous Sulfate 325 mg PO BID #90 tablet 08/30/18 Pnv,Calcium 72/Iron/Folic Acid [ Vitamin with Low Iron] 1 each PO DAILY #90 tablet 04/11/19 Cephalexin Monohydrate [Keflex -] 500 mg PO BID 7 Days #14 capsule 06/20/19 Anemia: No Asthma: Yes Cancer: No Cardiac Disorders: No CVA: No COPD: No CHF: No DVT: No Dementia: No Diabetes: No GI Disorders: No Disorders: No HTN: No Hypercholesterolemia: No Liver Disease: No Seizures: No Thyroid Disease: No - Surgical History Abdominal Surgery: Yes (gastric sleeve) - Reproductive History (#): 2 Para: 0 Cervical CA: No Dysfunctional Uterine Bleeding: No Ectopic : No Endometrial CA: No Polycystic Ovaries: No Therapeutic (s) & number: No Tubal Ligation: No Spontaneous : 0 - Immunization History Immunization Up to Date: Yes - Psycho Social/Smoking Cessation Hx Smoking Status: No Smoking History: Never smoked Have you smoked in the past 12 months: Yes Number of Cigarettes Smoked Daily: 0 Information on smoking cessation initiated: No Hx Alcohol Use: No Drug/Substance Use Hx: No Substance Use Type: None Review of Systems - Review of Systems Able to Perform ROS?: Yes Constitutional: No: Symptoms Reported HEENTM: No: Symptoms Reported Respiratory: No: Symptoms reported Cardiac (ROS): No: Symptoms Reported ABD/GI: Yes: Nausea, Other. No: Constipated, Diarrhea, Vomiting : No: Symptoms Reported Musculoskeletal: Yes: Back Pain Integumentary: No: Symptoms Reported Neurological: No: Symptoms reported Endocrine: No: Symptoms Reported Hematologic/Lymphatic: No: Symptoms Reported All Other Systems: Reviewed and Negative *Physical Exam - Vital Signs Last Vital Signs Temp Pulse Resp BP Pulse Ox 97.8 F 79 20 104/55 L 100 06/20/19 12:58 06/20/19 12:58 06/20/19 12:58 06/20/19 12:58 06/20/19 12:58 - Physical Exam General Appearance: Yes: Nourished, Appropriately Dressed. No: Apparent Distress HEENT: positive: EOMI, MURALI, Normal Voice, Symmetrical, Pharynx Normal. negative: Scleral Icterus (R), Scleral Icterus (L), Pharyngeal Erythema, Tonsillar Exudate, Tonsillar Erythema Neck: positive: Trachea midline, Supple. negative: Tender, Lymphadenopathy (R) , Lymphadenopathy (L) Respiratory/Chest: positive: Lungs Clear, Normal Breath Sounds. negative: Chest Tender, Respiratory Distress, Accessory Muscle Use, Crackles, Rales, Rhonchi, Stridor, Wheezing Cardiovascular: positive: Regular Rhythm, Regular Rate Female Pelvic Exam: positive: normal external exam, cervical os closed, normal adnexa. negative: CMT, adnexal tenderness, vaginal bleeding Gastrointestinal/Abdominal: positive: Normal Bowel Sounds, Tender (suprapubic), Protuberent. negative: Organomegaly, Pulsatile Mass, Guarding, Rebound Musculoskeletal: positive: Normal Inspection. negative: CVA Tenderness, Vertebral Tenderness Extremity: positive: Normal Capillary Refill, Normal Inspection, Normal Range of Motion, Pelvis Stable. negative: Tender, Coldness, Cyanosis, Pedal Edema, Swelling, Calf Tenderness Integumentary: positive: Normal Color, Dry, Warm Neurologic: positive: Fully Oriented, Alert, Normal Mood/Affect, Normal Response ED Treatment Course - LABORATORY CBC & Chemistry Diagram: 06/20/19 14:20 06/20/19 14:20 Medical Decision Making - Medical Decision Making 06/20/19 13:31 Sammi Altamirano is a 33F at 15 weeks with PMH presenting with abdominal pain. Presents with suprapubic tenderness with nausea at 15 weeks . Most likely UTI, but concerned for more serious causes including appendicitis vs. pyelo vs. renal stone vs. OBGYN related pathology i.e placental abnormality vs. ovarian pathology. 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 CMP CBC Beta quant UA/UC POCUS US 06/20/19 16:40 Labs remarkable for: - WBC WNL - CBC WNL - UA shows >500 bacteria, treating as UTI POCUS shows live IUP at 15 weeks, FHR WNL. Patient's pain likely caused by UTI, treating with Keflex 500mg bid for 7 days. Stable for discharge home with OBGYN f/u. Discharge - Discharge Information Problems reviewed: Yes Clinical Impression/Diagnosis: UTI (urinary tract infection) Qualifiers: Urinary tract infection type: acute cystitis Hematuria presence: without hematuria Qualified Code(s): N30.00 - Acute cystitis without hematuria Abdominal pain Qualifiers: Abdominal location: unspecified location Qualified Code(s): R10.9 - Unspecified abdominal pain Condition: Stable Disposition: HOME - Admission No - Additional Discharge Information Prescriptions: Cephalexin Monohydrate [Keflex -] 500 mg PO BID 7 Days #14 capsule - Follow up/Referral - Patient Discharge Instructions Patient Printed Discharge Instructions: DI for Urinary Tract Infection (UTI) Additional Instructions: Today you were evaluated for abdominal pain. We obtained blood labs that were all normal without evidence of infection or electrolyte problems. Your ultrasound showed a normal at 15 weeks with a normal heart rate. Your urine shows an infection called a UTI, and we are sending you some antibiotics called Keflex to take for this. This infection is the likely cause of your pain. You have to take this medicine, or else your will be at risk. If you do not, your baby may . However, you do not have any life-threatening diseases at this time. Please follow-up with your OBGYN in the next 3 days for further care. If you experience worsening pain, nausea, vomiting, chest pain, fever, vaginal bleeding or any other new or concerning symptoms, please return to the emergency room. Hoy fuiste evaluado por dolor abdominal. Obtuvimos laboratorios de gabbie que lucio normales sin evidencia de infeccin o problemas de electrolitos. Barber ultrasonido mostr un embarazo normal a las 15 semanas con zina frecuencia cardaca normal. Barber orina muestra zina infeccin llamada UTI, y le enviamos algunos antibiticos llamados Keflex para que tome. Esta infeccin es la causa probable de barber dolor. Tiene que carlotta mario medicamento, o barber embarazo estar en riesgo. Si no lo hace, barber beb puede morir. Sin embargo, no tiene ninguna enfermedad que amenace la reyes en mario momento. Elis un seguimiento con barber OBGYN en los prximos 3 jeffers para obtener ms atencin. Si experimenta un empeoramiento del dolor, nuseas, vmitos, dolor en el pecho, fiebre, sangrado vaginal o cualquier otro sntoma nuevo o preocupante , regrese a la vivek de emergencias. - Post Discharge Activity
--- NOTE | 2019-06-20 14:35 | PDOC ---
Documentation entered by Abiola Christy SCRIBE, acting as scribe for Se Patrick MD. Se Patrick MD: This documentation has been prepared by the Westley wang Xhesika, SCRIBE, under my direction and personally reviewed by me in its entirety. I confirm that the documentation accurately reflects all work, treatment, procedures, and medical decision making performed by me. Attending Attestation - Resident Resident Name: Floyd Ta - ED Attending Attestation I have performed the following: I have examined & evaluated the patient, The case was reviewed & discussed with the resident, I agree w/resident's findings & plan, Exceptions are as noted - HPI HPI: 06/20/19 14:10 The patient is a 33 year old female, A2, currently 15 weeks , with no significant PMH of who presents to the emergency department for 2s day of achin b/l back pain. 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 Pt reports lower back pain which has been chronic since the beginning of her . Pt denies any vaginal bleeding or discharge. Patient notes that her back pain seemed xacerbated when she was lifng a heavy door at work. Patient denies any numbness, tingling, urinary bowel incontinence. No recent fall or trauma The patient denies chest pain, shortness of breath, headache and dizziness. Denies fever, chills, cough, nausea, vomiting, diarrhea and constipation. Denies dysuria, frequency, urgency and hematuria. Allergies: NKDA - Physicial Exam PE: 06/20/19 14:10 GENERAL: The patient is awake, alert, and fully oriented, Nontoxic - in no acute distress. HEAD: Normocephalic, atraumatic. EYES: extraocular movements intact, sclera anicteric, conjunctiva clear. ENT: Normal voice, Moist mucous membranes. NECK: Normal range of motion, supple without lymphadenopathy, JVD, or masses. LUNGS: Breath sounds equal, clear to auscultation bilaterally. No wheezes, no crackles, no rales. HEART: Regular rate and rhythm, normal S1 and S2 without murmur, rub or gallop. ABDOMEN: Soft, nontender, normoactive bowel sounds. No guarding, no rebound. No masses. BACK: Mild paraspinal lumbar tenderness, no midilne tendeness, ecchymosis, stepoffs, fluctuance EXTREMITIES: Normal range of motion, no edema. No clubbing or cyanosis. No cords, erythema, or tenderness. NEUROLOGICAL: No facial asymmetry, Normal speech, normal gait. PSYCH: Normal mood, normal affect. SKIN: Warm, Dry, normal turgor, no rashes or lesions noted. - Medical Decision Making 06/20/19 14:34 Differential for the patient's symptoms includes likely MSK pain, patient does endorse a minimal suprapubic pain however without any vaginal bleeding states that it does not really hurt. Will evaluate her to ensure viability We will give Tylenol for pain Will obtain UA to screen for UTI
[2019-06-20 14:40] LABS: BASO % 0.4 % (0-2.0); EOS % 0.4 % (0-4.5); HEMOGLOBIN 12.7 GM/dL (10.7-15.3); LYMPH % 26.7 % (8-40); MCH 26.6 pg (25.7-33.7); MCHC 32.4 g/dl (32.0-36.0); MEAN PLT VOLUME 9.1 fl (7.5-11.1); MONO % 6.4 % (3.8-10.2); NEUT % 66.1 % (42.8-82.8); PLATELET COUNT 292 K/MM3 (134-434); RBC 4.76 M/mm3 (3.60-5.2); RDW 18.1 % (11.6-15.6); WHITE BLOOD COUNT 7.8 K/mm3 (4.0-10.0)
[2019-06-20 15:21] LABS: ALBUMIN 3.3 g/dl (3.4-5.0); BILIRUBIN,TOTAL 0.4 mg/dL (0.2-1); BLOOD UREA NITROGEN 6.8 mg/dL (7-18); CALCIUM 8.9 mg/dL (8.5-10.1); CREATININE 0.5 mg/dL (0.55-1.3); POTASSIUM 4.4 mmol/L (3.5-5.1); TOT PROT 6.9 g/dl (6.4-8.2)
[2019-06-20 15:28] LABS: EPI CELLS 14.1 /HPF (0-5/HPF); HYALINE CASTS 13 /lpf (0-8); PH,URINE 6.5 (5.0-8.0); URINE APPEARANCE CLOUDY; URINE BACTERIA 891.2 /hpf (NEGATIVE); URINE BILIRUBIN NEGATIVE (NEGATIVE); URINE COLOR DK YELLOW; URINE GLUCOSE (UA) NEGATIVE (NEGATIVE); URINE KETONE NEGATIVE (NEGATIVE); URINE LEUK ESTERASE TRACE (NEGATIVE); URINE NITRITE NEGATIVE (NEGATIVE); URINE PROTEIN TRACE (NEGATIVE); URINE RBC 3 /hpf (0-4); URINE WBC 6 /hpf (0-5)
== END 2019-06-20 16:00 | disposition home or self-care (01) ==
LOC: JER 12:44
DX: O26.892 Other specified pregnancy related conditions, second trimester (principal); O23.12 Infections of bladder in pregnancy, second trimester; Z3A.15 15 weeks gestation of pregnancy
CPT/HCPCS: 36415; 76815; 80053; 81003; 84702; 85025; 87086; 99282-25

== ENCOUNTER 2019-08-19 10:50 | Inpatient (IN) | payer OTHER ==
[~2019-08-19 10:50] MED LIST: BETAMET ACET/BETAMET NA PH 30 MG/5 ML VIAL IM ONE; ELECTROLYTE-148 SOLN 1,000 ML IV SCH
[2019-08-19] MEDS ORDERED: AMPICILLIN SODIUM 2 GM VIAL IVPB ONE (11:25)
[2019-08-19] MEDS ORDERED: MAGNESIUM SULFATE 4GM/100CC IN STERILE WATER IVPB ONE (11:35)
[2019-08-19] MEDS ORDERED: MAGNESIUM SULFATE 20GM/500ML - 20 GM/500 ML INFUS.BAG IVPB SCH (12:05)
[2019-08-19 12:58] VITALS: TEMP 98.4; BMI 25.6
[2019-08-19 13:36] LABS: BASO % 0.5 % (0-2.0); EOS % 0.6 % (0-4.5); HEMATOCRIT 37.3 % (32.4-45.2); HEMOGLOBIN 11.9 GM/dL (10.7-15.3); LYMPH % 25.6 % (8-40); MCH 27.4 pg (25.7-33.7); MEAN CELL VOLUME 85.5 fl (80-96); MEAN PLT VOLUME 9.9 fl (7.5-11.1); MONO % 4.4 % (3.8-10.2); NEUT % 68.9 % (42.8-82.8); PLATELET COUNT 247 K/MM3 (134-434); RBC 4.36 M/mm3 (3.60-5.2); RDW 14.2 % (11.6-15.6); WHITE BLOOD COUNT 6.7 K/mm3 (4.0-10.0)
[2019-08-19 13:55] LABS: INR 0.9 (0.83-1.09); PROTHROMBIN TIME (PATIENT) 10.6 SEC (9.7-13.0)
[2019-08-19 13:57] LABS: ACTIVATED PTT 27.4 SECONDS (25.2-36.5)
[2019-08-19 14:02] LABS: BLOOD UREA NITROGEN 6.6 mg/dL (7-18); CALCIUM 8.2 mg/dL (8.5-10.1); CREATININE 0.5 mg/dL (0.55-1.3); POTASSIUM 4.4 mmol/L (3.5-5.1)
--- NOTE | 2019-08-19 14:20 | HP ---
Past Medical History - Primary Care Physician PCP:: Onel Gray - Admission Chief Complaint: 23.4 weeks, short cervix, funneling History of Present Illness: 33 yo f 0 3 0 23.4 weeks, referred from [facility] office for short cx and cervical funneling, no pain, no contraction, no ROM, no bleeding, no dysuria, no vaginal discharge History Source: Patient Limitations to Obtaining History: Language Barrier - Past Medical History Pulmonary: Yes: Asthma ...: 4 ...Para: 0 ...Term: 0 ...: 0 ...Spon : 2 ...Induced : 1 ...Multiple Gestation: 0 ...LMP: 03/03/19 ... Weeks Gestation by Dates: 24.1 ...EDC by Dates: 12/08/19 ...EDC by Sono: 12/12/19 Heme/Onc: Yes: Anemia - Past Surgical History Past Surgical History: Yes: Bariatric Surgery Hx Myomectomy: No Hx Transabdominal Cerclage: No - Smoking History Smoking history: Never smoked Have you smoked in the past 12 months: No Aproximately how many cigarettes per day: 0 - Alcohol/Substance Use Hx Alcohol Use: No - Social History History of Recent Travel: No Home Medications - Allergies Allergies/Adverse Reactions: Allergies Allergy/AdvReac Type Severity Reaction Status Date / Time No Known Allergies Allergy Verified 08/19/19 12:18 - Home Medications Home Medications: Ambulatory Orders Pnv No.95/Ferrous Fum/Folic AC [ Vitamin Tablet] 1 each PO DAILY Review of Systems - Review of Systems Constitutional: reports: No Symptoms Eyes: reports: No Symptoms HENT: reports: No Symptoms Neck: reports: No Symptoms Cardiovascular: reports: No Symptoms Respiratory: reports: No Symptoms Gastrointestinal: reports: No Symptoms Genitourinary: reports: No Symptoms Breasts: reports: No Symptoms Reported Musculoskeletal: reports: No Symptoms Integumentary: reports: No Symptoms Endocrine: reports: No Symptoms Hematology/Lymphatic: reports: No Symptoms Psychiatric: reports: No Symptoms Physical Exam - Maternity Vital Signs: Vital Signs Temperature 98.4 F 08/19/19 10:50 Pulse Rate 80 08/19/19 10:50 Respiratory Rate 18 08/19/19 10:50 Blood Pressure 109/79 08/19/19 10:50 O2 Sat by Pulse Oximetry (%) Constitutional: Yes: Well Nourished, No Distress, Calm Eyes: Yes: WNL, Conjunctiva Clear, EOM Intact HENT: Yes: WNL, Atraumatic, Normocephalic Neck: Yes: WNL, Supple, Trachea Midline Cardiovascular: Yes: WNL, Regular Rate and Rhythm Breast(s): Yes: WNL - Abdominal Exam/OB Fundal Height: 24 Number of Fetuses: Single Presentation: Vertex Contractions: No Intensity: Unaware Monitor Mode: External Category: I Accelerations: Non-Uniform Decelerations: None - Vaginal Exam/OB Vaginal Bleediing: No Speculum Exam: Yes Dilatation (cm): closed Effacement (%): 50 Amniotic Membrane Status: Intact Presentation: Vertex/Position - Physical Exam Musculoskeletal: Yes: WNL Edema: Yes Edema: LLE: Trace, RLE: Trace Deep Tendon Reflex Grade: Normal +2 Psychiatric: Yes: WNL - Labs Lab Results: CBC, BMP 08/19/19 12:57 08/19/19 12:57 Hemorrhage Risk Assessment - Risk Factors Medium Risk Factors: Yes: None High Risk Factors: Yes: None Risk Score: 1 Risk Level: Medium Risk Problem List - Problems (1) with 23 completed weeks gestation Code(s): Z3A.23 - 23 WEEKS GESTATION OF (2) Short cervical length during Code(s): O26.879 - CERVICAL SHORTENING, UNSPECIFIED TRIMESTER (3) History of bariatric surgery Code(s): Z98.84 - BARIATRIC SURGERY STATUS (4) Cervical funneling Code(s): N88.8 - OTHER SPECIFIED NONINFLAMMATORY DISORDERS OF CERVIX UTERI Assessment/Plan finding discussed with patient and family , advised to be transfer to [facility] in view of prematurity risks and benfit discussed agreed to e transfer to [facility], bed available
[2019-08-19 15:13] VITALS: BP 107/57; PULSE 97
[2019-08-19] MEDS ORDERED: AMPICILLIN SODIUM 1 GM VIAL IVPB SCH (15:25)
[2019-08-20] MEDS ORDERED: BETAMET ACET/BETAMET NA PH 30 MG/5 ML VIAL IM ONE (10:50)
== END 2019-08-19 15:00 | disposition short-term general hospital (02) | DRG 566 ==
LOC: JLDR 10:50
PROVIDERS: ADMIT Obstetrics & Gynecology; ATTEND Obstetrics & Gynecology
DX: O26.872 Cervical shortening, second trimester (principal); Z3A.23 23 weeks gestation of pregnancy; O26.892 Other specified pregnancy related conditions, second trimester; N88.8 Other specified noninflammatory disorders of cervix uteri
CPT/HCPCS: 36415; 80048; 85025; 85610; 85730; 86593; 86850; 86900; 86901; 96372

== ENCOUNTER 2022-02-09 20:32 | Emergency (ER) | payer OTHER ==
[2022-02-09 20:39] VITALS: BP 121/79; PULSE 66; RESP 19; TEMP 98.6; BMI 25.7
[2022-02-09] MEDS ORDERED: SODIUM CHLORIDE 0.9% 500 ML INFUS.BAG IV ONE (21:47)
[2022-02-09] MEDS ORDERED: METOCLOPRAMIDE HCL INJECTION 10 MG/2 ML VIAL IVPUSH ONE (21:47)
[2022-02-09] MEDS ORDERED: KETOROLAC TROMETHAMINE 30 MG/1 ML VIAL IVPUSH ONE (21:47)
[2022-02-09] MEDS ORDERED: METOCLOPRAMIDE HCL INJECTION 10 MG/2 ML VIAL ONE (21:50)
[2022-02-09] MEDS ORDERED: KETOROLAC TROMETHAMINE 30 MG/1 ML VIAL ONE (21:50)
[2022-02-09 22:15] LABS: BASO % 0.8 % (0-2.0); EOS % 1.3 % (0-4.5); HEMATOCRIT 44.6 % (32.4-45.2); HEMOGLOBIN 14.6 GM/dL (10.7-15.3); LYMPH % 39.7 % (8-40); MCH 29.1 pg (25.7-33.7); MCHC 32.8 g/dl (32.0-36.0); MEAN CELL VOLUME 88.8 fl (80-96); MEAN PLT VOLUME 8.8 fl (7.5-11.1); MONO % 5.6 % (3.8-10.2); NEUT % 52.6 % (42.8-82.8); PLATELET COUNT 266 10^3/uL (134-434); RBC 5.02 M/mm3 (3.60-5.2); RDW 13.1 % (11.6-15.6); WHITE BLOOD COUNT 6.7 K/mm3 (4.0-10.0)
[2022-02-09 22:36] LABS: ALBUMIN 3.5 g/dl (3.4-5.0); CALCIUM 8.6 mg/dL (8.5-10.1)
[2022-02-09 22:39] LABS: CREATININE 0.6 mg/dL (0.55-1.3)
[2022-02-09 22:41] LABS: BILIRUBIN,TOTAL 0.3 mg/dL (0.2-1); TOT PROT 7.3 g/dl (6.4-8.2)
== END 2022-02-09 23:42 | disposition home or self-care (01) ==
LOC: JERFT 20:32
PROC: 3E033GC Introduction of Other Therapeutic Substance into Peripheral Vein, Percutaneous Approach (ICD-10-PCS; principal; 2022-02-09)
PROC: 3E0333Z Introduction of Anti-inflammatory into Peripheral Vein, Percutaneous Approach (ICD-10-PCS; 2022-02-09)
PROC: 3E033GC Introduction of Other Therapeutic Substance into Peripheral Vein, Percutaneous Approach (ICD-10-PCS; 2022-02-09)
DX: R51.9 Headache, unspecified (principal)
CPT/HCPCS: 36415; 70450-TC; 80053; 85025; 99284-25

== ENCOUNTER 2022-09-17 19:28 | Emergency (ER) | payer OTHER ==
[2022-09-17 19:44] VITALS: BP 123/77; PULSE 67; RESP 18; TEMP 98; BMI 26.1
[2022-09-17] MEDS ORDERED: ACETAMINOPHEN 500 MG TABLET (FP) PO ONE (20:08)
[2022-09-17] MEDS ORDERED: FAMOTIDINE 20 MG TABLET PO ONE (20:31)
[2022-09-17] MEDS ORDERED: METOCLOPRAMIDE HCL INJECTION 10 MG/2 ML VIAL IVPUSH ONE (20:31)
[2022-09-17] MEDS ORDERED: FAMOTIDINE 10 MG TABLET PO ONE (20:53)
[2022-09-17] MEDS ORDERED: METOCLOPRAMIDE HCL INJECTION 10 MG/2 ML VIAL IM ONE (20:53)
[2022-09-17 20:55] LABS: BASO % 0.7 % (0-2.0); EOS % 1.4 % (0-4.5); HEMATOCRIT 45.8 % (32.4-45.2); HEMOGLOBIN 15.1 GM/dL (10.7-15.3); LYMPH % 50.3 % (8-40); MCH 28.4 pg (25.7-33.7); MCHC 32.9 g/dl (32.0-36.0); MEAN CELL VOLUME 86.4 fl (80-96); MONO % 4.2 % (3.8-10.2); NEUT % 43.4 % (42.8-82.8); WHITE BLOOD COUNT 9.1 K/mm3 (4.0-10.0)
[2022-09-17] MEDS ORDERED: METOCLOPRAMIDE HCL 10 MG TABLET (FP) PO ONE ×2 (21:16→21:18)
[2022-09-17] MEDS ORDERED: ACETAMINOPHEN 325 MG TABLET (FP) ONE (21:18)
[2022-09-17] MEDS ORDERED: FAMOTIDINE 20 MG TABLET ONE (21:19)
[2022-09-17 21:25] LABS: CHLORIDE 105 mmol/L (98-107); SODIUM 137 mmol/L (136-145)
[2022-09-17 21:27] LABS: CALCIUM 8.7 mg/dL (8.5-10.1)
[2022-09-17 21:28] LABS: ALBUMIN 3.7 g/dl (3.4-5.0); ANION GAP 7 MMOL/L (8-16); BLOOD UREA NITROGEN 12.2 mg/dL (7-18); CO2 25 mmol/L (21-32); GLUCOSE,RANDOM 114 mg/dL (74-106); LIPASE 98 U/L (73-393); MAGNESIUM 2.1 mg/dL (1.8-2.4)
[2022-09-17 21:30] LABS: PLATELET COUNT 280 10^3/uL (134-434)
[2022-09-17 21:31] LABS: CREATININE 0.5 mg/dL (0.55-1.3); PHOSPHOROUS 3.8 mg/dL (2.5-4.9); SGOT/AST 46 U/L (15-37); SGPT/ALT 52 U/L (13-61)
[2022-09-17 21:32] LABS: BILIRUBIN,TOTAL 0.6 mg/dL (0.2-1)
[2022-09-17 21:33] LABS: TOT PROT 7.9 g/dl (6.4-8.2)
[2022-09-17 21:34] LABS: ALK PHOS 68 U/L (45-117)
== END 2022-09-17 21:59 | disposition home or self-care (01) ==
LOC: JER 19:28
DX: R07.2 Precordial pain (principal); R51.9 Headache, unspecified
CPT/HCPCS: 36415; 70450-TC; 71046-TC-FY; 80053; 83690; 83735; 84100; 84484; 84703; 85025; 93005; 93010; 99285-25

== ENCOUNTER 2023-11-19 13:46 | Emergency (ER) | payer OTHER ==
[2023-11-19 13:56] VITALS: BP 132/88; PULSE 87; RESP 20; TEMP 97.8; BMI 27.4
== END 2023-11-19 14:38 | disposition home or self-care (01) ==
LOC: JERFT 13:46
DX: R09.81 Nasal congestion (principal); R06.02 Shortness of breath; J45.909 Unspecified asthma, uncomplicated
CPT/HCPCS: 99283-25